=== PATIENT | female | born 1960 | race Hispanic/Latino ===

== ENCOUNTER 2020-12-28 19:01 | Inpatient (IN) | payer OTHER ==
[2020-12-28 19:55] LABS: Absolute Lymphocytes (CBC) 1.3 K/uL (0.7-4.9); Basophils % 0.7 % (0-1.3); Hematocrit 35.7 % (36.0-45.0); Lymphocytes % 17.4 % (15.3-44.8); MPV 7.4 fL (7.6-11.3); RBC Red Blood Cell Count 4.24 M/uL (3.86-4.86)
[2020-12-28 19:56] LABS: Protime INR 1.1
[2020-12-28] MEDS ORDERED: NA CHLORIDE 0.9% 1,000 ML ONE (20:09)
[2020-12-28 20:46] LABS: ALT/SGPT 70 U/L (12-78); AST/SGOT 64 U/L (15-37); Albumin 2.5 g/dL (3.4-5.0); Alkaline Phosphatase 134 U/L (45-117); BUN Blood Urea Nitrogen 30 mg/dL (7-18); Bicarbonate 24 mmol/L (21-32); Bilirubin Direct 0.1 mg/dL (0-0.2); Bilirubin Total 0.3 mg/dL (0.2-1.0); Glucose Level 134 mg/dL (74-106); Magnesium 1.8 mg/dL (1.8-2.4); NT PRO-BNP 57 pg/mL (<125); Potassium 4.1 mmol/L (3.5-5.1); Protein, Total 6.6 g/dL (6.4-8.2); Sodium Level 140 mmol/L (136-145); Troponin (Emerg Dept Use Only) < 0.02 ng/mL (0.0-0.045)
--- NOTE | 2020-12-28 21:15 | RAD REPORT ---
EXAM DESCRIPTION: CT - Chest For Pe Angio - 12/28/2020 9:02 pm CLINICAL HISTORY: Cough;Congestion COMPARISON: No comparisons FINDINGS: Chest Wall: No suspicious thyroid nodules or pathologic lymphadenopathy. Right breast pros thesis. Collapsed left breast prosthesis . Lungs: Moderate airspace disease bilaterally. Pleura: No significant effusions or pneumothorax. Mediastinum/gin: No pathologic lymphadenopathy. Pulmonary arteries/Aorta: No filling defect identified. No aortic aneurysm. Heart: No significant pericardial effusion. Normal heart size. Upper abdomen: No acute abnormality. Cholecystectomy. Bones: No acute abnormality. All CT scans are performed using dose optimization technique as appropriate and may include automated exposure control or mA/KV adjustment according to patient size. IMPRESSION: Negative for pulmonary embolism. Moderate bilateral airspace disease concerning for mult ifocal pneumonia, including Covid-19.
--- NOTE | 2020-12-28 22:03 | EDPHYS ---
Physician Documentation [facility] Name: Jesi Valencia Age: 60 yrs Sex: Female : 1960 Arrival Date: 12/28/2020 Time: 19:03 Bed 8 Private MD: NIKO Physician Stephen Capps HPI: 12/28 21:54 This 60 yrs old Female presents to ER via Ambulatory with complaints of Lung hermilo Problem- spots. 21:54 The patient has shortness of breath at rest, with light activity. Onset: The hermilo symptoms/episode began/occurred 1 week(s) ago. Duration: The symptoms are continuous, and are steadily getting worse, 10 DAYS. The patient's shortness of breath has no apparent modifying factors. The patient or guardian reports cough, described as mild, described as moderate, difficulty breathing, flu symptoms, arthralgias, low-grade fever, myalgias. Modifying factors: The symptoms are alleviated by remaining still, the symptoms are aggravated by activity, lying flat. Associated signs and symptoms: Pertinent positives: non-productive cough, fever. Severity of symptoms: At their worst the symptoms were moderate in the emergency department the symptoms are unchanged. Associated signs and symptoms: Pertinent positives: chest pain, fever, rhinorrhea, sore throat. - Immunization history:: Adult Immunizations up to date, Client reports receiving the 2nd dose of the Covid vaccine. - Social history:: Smoking status: Patient denies any tobacco usage or history of. - Family history:: not pertinent. ROS: 21:54 Constitutional: Negative for fever, chills, and weight loss, Eyes: Negative for injury, hermilo pain, redness, and discharge, ENT: Negative for injury, pain, and discharge, Neck: Negative for injury, pain, and swelling, Cardiovascular: Negative for chest pain, palpitations, and edema, Abdomen/GI: Negative for abdominal pain, nausea, vomiting, diarrhea, and constipation, Back: Negative for injury and pain, : Negative for injury, bleeding, discharge, and swelling, MS/Extremity: Negative for injury and deformity, Skin: Negative for injury, rash, and discoloration, Neuro: Negative for headache, weakness, numbness, tingling, and seizure, Psych: Negative for depression, anxiety, suicide ideation, homicidal ideation, and hallucinations, Allergy/Immunology: Negative for hives, rash, and allergies, Endocrine: Negative for neck swelling, polydipsia, polyuria, polyphagia, and marked weight changes, Hematologic/Lymphatic: Negative for swollen nodes, abnormal bleeding, and unusual bruising. 21:54 Respiratory: Positive for cough, shortness of breath, at rest. Exam: 21:54 Constitutional: This is a well developed, well nourished patient who is awake, alert, hermilo and in no acute distress. Head/Face: Normocephalic, atraumatic. Eyes: Pupils equal round and reactive to light, extra-ocular motions intact. Lids and lashes normal. Conjunctiva and sclera are non-icteric and not injected. Cornea within normal limits. Periorbital areas with no swelling, redness, or edema. ENT: Nares patent. No nasal discharge, no septal abnormalities noted. Tympanic membranes are normal and external auditory canals are clear. Oropharynx with no redness, swelling, or masses, exudates, or evidence of obstruction, uvula midline. Mucous membranes moist. Neck: Trachea midline, no thyromegaly or masses palpated, and no cervical lymphadenopathy. Supple, full range of motion without nuchal rigidity, or vertebral point tenderness. No Meningismus. Chest/axilla: Normal chest wall appearance and motion. Nontender with no deformity. No lesions are appreciated. Cardiovascular: Regular rate and rhythm with a normal S1 and S2. No gallops, murmurs, or rubs. Normal PMI, no JVD. No pulse deficits. Abdomen/GI: Soft, non-tender, with normal bowel sounds. No distension or tympany. No guarding or rebound. No evidence of tenderness throughout. Back: No spinal tenderness. No costovertebral tenderness. Full range of motion. Female : Normal external genitalia. Skin: Warm, dry with normal turgor. Normal color with no rashes, no lesions, and no evidence of cellulitis. MS/ Extremity: Pulses equal, no cyanosis. Neurovascular intact. Full, normal range of motion. Neuro: Awake and alert, GCS 15, oriented to person, place, time, and situation. Cranial nerves II-XII grossly intact. Motor strength 5/5 in all extremities. Sensory grossly intact. Cerebellar exam normal. Normal gait. Psych: Awake, alert, with orientation to person, place and time. Behavior, mood, and affect are within normal limits. 21:54 Respiratory: the patient does not display signs of respiratory distress, Respirations: no acute changes, is not noted, labored breathing, is not present, Breath sounds: decreased breath sounds, that are moderate, rhonchi, that are mild. 21:54 Respiratory: Respiratory rate: 81 22:03 ECG was reviewed by the Attending Physician. hermilo Vital Signs: 19:16 BP 124 / 73; Pulse 106; Resp 20; Temp 99.0; Pulse Ox 92% on R/A; Weight 102.51 kg; df1 Height 5 ft. 1 in. (154.94 cm); 19:19 BP 124 / 73; Pulse 106; Resp 20; Temp 99.0; Pulse Ox 92% on R/A; df1 21:40 BP 113 / 57; Pulse 81; Resp 18 S; Pulse Ox 99% on R/A; ch4 19:16 Body Mass Index 42.70 (102.51 kg, 154.94 cm) df1 [place] Coma Score: 19:47 Eye Response: spontaneous(4). Verbal Response: oriented(5). Motor Response: obeys ch4 commands(6). Total: 15. MDM: 19:29 Patient medically screened. hermilo 21:58 Differential diagnosis: asthma, Bronchitis CHF exacerbation, Chronic Obstructive hermilo Pulmonary Disease bronchitis, flu, URI, pneumonia, pulmonary edema, Pulmonary Embolism reactive airway disease, Sepsis. Antibiotic administration: Rocephin and Zithromax given. The patient's Wells Deep Vein Thrombosis Score was calculated as follows: Total Score: 0-2 Pts- Low Risk. The patient's pulmonary embolism risk score was calculated as follows: Total Score: 0-2 points. This patient was found to be at low risk for a pulmonary embolism by using the Well's assessment criteria. Immunization status: Influenza vaccine: Data reviewed: vital signs, nurses notes, lab test result(s), EKG, radiologic studies, CT scan, plain films. Data interpreted: shelter monitor: rate is 81 beats/min, rhythm is regular, Pulse oximetry: on room air is 92 %. Test interpretation: by ED physician or midlevel provider: ECG, plain radiologic studies. Counseling: I had a detailed discussion with the patient and/or guardian regarding: the historical points, exam findings, and any diagnostic results supporting the discharge/admit diagnosis, lab results, radiology results, the need for further work-up and treatment in the hospital. 12/28 19:28 Order name: Basic Metabolic Panel; Complete Time: 21:36 [facility] 12/28 19:28 Order name: CBC with Diff; Complete Time: 21:36 [facility] 12/28 19:28 Order name: LFT's; Complete Time: 21:36 [facility] 12/28 19:28 Order name: Magnesium; Complete Time: 21:36 [facility] 12/28 19:28 Order name: NT PRO-BNP; Complete Time: 21:36 [facility] 12/28 19:28 Order name: PT-INR; Complete Time: 21:36 [facility] 12/28 19:28 Order name: Troponin (emerg Dept Use Only); Complete Time: 21:36 [facility] 12/28 19:28 Order name: Blood Culture Adult (2) [facility] 12/28 21:38 Order name: COVID-19 : Document "Date of Symptom Onset" if Symptomatic. [facility] 12/28 22:00 Order name: CRP [facility] 12/28 22:00 Order name: Ferritin [facility] 12/29 00:11 Order name: SARS-COV-2 RT PCR [facility] 12/28 19:28 Order name: EKG; Complete Time: 19:29 [facility] 12/28 19:28 Order name: Cardiac monitoring; Complete Time: 19:38 [facility] 12/28 19:28 Order name: EKG - Nurse/Tech; Complete Time: 19:38 [facility] 12/28 19:28 Order name: IV Saline Lock; Complete Time: 19:38 [facility] 12/28 19:28 Order name: Labs collected and sent; Complete Time: 19:38 [facility] 12/28 19:28 Order name: O2 Per Protocol; Complete Time: 19:38 [facility] 12/28 19:28 Order name: CT Chest For PE Angio; Complete Time: 21:36 [facility] 12/28 23:17 Order name: CONS Physician Consult; Complete Time: 00:18 [facility] 12/28 19:28 Order name: O2 Sat Monitoring; Complete Time: 19:38 [facility] EC:03 Rate is 96 beats/min. Rhythm is regular. QRS [place] is Normal. [place] interval is normal. QRS hermilo interval is normal. QT interval is normal. No Q waves. T waves are Normal. No ST changes noted. Clinical impression: NSR w/ Non-specific ST/T Changes and No evidence of ischemia. Interpreted by me. Reviewed by me. Administered Medications: 19:47 Drug: NS 0.9% 1000 ml Route: IV; Rate: 125 ml/hr; Site: right antecubital; ch4 21:58 Drug: SOLU-Medrol (methylPrednisoLONE) 125 mg Route: IVP; Site: right antecubital; ea 21:58 Drug: predniSONE 40 mg Route: PO; ea 21:58 Drug: Rocephin (cefTRIAXone) 1 grams Route: IV; Rate: per protocol; Site: right ea antecubital; 21:58 Drug: Zithromax (azithromycin) 500 mg Route: PO; ea 21:58 Drug: Pepcid (famotidine) 40 mg Route: PO; ea 12/29 00:18 Drug: Singulair 10 mg Route: PO; ch4 00:18 Drug: Aspirin Chewable Tablet 324 mg Route: PO; ch4 Disposition Summary: 12/28/20 22:02 Hospitalization Ordered Hospitalization Status: Observation hermilo Provider: Ewa Hare cha Location: Telemetry/MedSurg (observation) hermilo Condition: Fair hermilo Problem: new hermilo Symptoms: have improved hermilo Bed/Room Type: Standard hermilo Room Assignment: 228(12/29/20 01:08) tl1 Diagnosis - Hypoxemia hermilo - Other viral pneumonia - BILATERAL hermilo - Chest pain on breathing hermilo Forms: - Medication Reconciliation Form hermilo - SBAR form hermilo Signatures: Dispatcher [employer] EDStephen Carolina MD MD cha Lasagna, Tonya RN RN tl1 Abigail Barker RN RN ea Herman, Christina RN Justina Bearden df1 Corrections: (The following items were deleted from the chart) 12/28 20:15 19:29 Chest Single View+RAD.RAD.BRZ ordered. EDMS EDMS 23:02 21:38 CORONAVIRUS ordered. EDMS EDMS 12/29 01:08 12/28 22:02 hermilo tl1
--- NOTE | 2020-12-28 22:03 | ER ---
Nurse's Notes [facility] Name: Jesi Valencia Age: 60 yrs Sex: Female : 1960 Arrival Date: 12/28/2020 Time: 19:03 Bed 8 Private MD: Diagnosis: Hypoxemia;Other viral pneumonia-BILATERAL;Chest pain on breathing Presentation: 12/28 19:16 Chief complaint: Patient states: SOB x 1 week. Seen at PCP today tested neg for flu and df1 covid. Xray at PCP today showed "spots on lungs" Referred to ER. Coronavirus screen: Client denies travel out of the [place] in the last 14 days. Client presents with at least one sign or symptom that may indicate coronavirus-19. Standard/surgical mask placed on the client. Ebola Screen: Patient denies travel to an Ebola-affected area in the 21 days before illness onset. No symptoms or risks identified at this time. 19:16 Method Of Arrival: Ambulatory df1 - Immunization history:: Adult Immunizations up to date, Client reports receiving the 2nd dose of the Covid vaccine. - Social history:: Smoking status: Patient denies any tobacco usage or history of. - Family history:: not pertinent. Screenin:47 Abuse screen: Denies threats or abuse. Nutritional screening: No deficits noted. ch4 Tuberculosis screening: No symptoms or risk factors identified. Fall Risk None identified. Assessment: 19:47 General: Appears in no apparent distress. comfortable, Behavior is calm, cooperative. ch4 Pain: Complains of pain in chest. Neuro: No deficits noted. Cardiovascular: No deficits noted. Respiratory: Reports shortness of breath at rest Airway is patent Breath sounds are clear bilaterally. Breath sounds are diminished in left posterior lower lobe and right posterior lower lobe. GI: No deficits noted. : No deficits noted. Derm: No deficits noted. Musculoskeletal: No deficits noted. 21:26 Reassessment: Patient and/or family updated on plan of care and expected duration. Pain ea level reassessed. Patient is alert, oriented x 3, equal unlabored respirations, skin warm/dry/pink. Vital Signs: 19:16 BP 124 / 73; Pulse 106; Resp 20; Temp 99.0; Pulse Ox 92% on R/A; Weight 102.51 kg; df1 Height 5 ft. 1 in. (154.94 cm); 19:19 BP 124 / 73; Pulse 106; Resp 20; Temp 99.0; Pulse Ox 92% on R/A; df1 21:40 BP 113 / 57; Pulse 81; Resp 18 S; Pulse Ox 99% on R/A; ch4 19:16 Body Mass Index 42.70 (102.51 kg, 154.94 cm) df1 Vitals: 19:47 Cardiac Rhythm Assessment Regular. ch4 Mita Coma Score: 19:47 Eye Response: spontaneous(4). Verbal Response: oriented(5). Motor Response: obeys ch4 commands(6). Total: 15. ED Course: 19:03 Patient arrived in ED. as 19:29 Stephen Capps MD is Attending Physician. [facility] 19:37 Maya Araujo, RAMONE is Primary Nurse. ch4 19:47 Patient has correct armband on for positive identification. Bed in low position. Call ch4 light in reach. Side rails up X 1. 19:47 Inserted saline lock: 20 gauge in right antecubital area, using aseptic technique. ch4 19:47 Oxygen administration via nasal cannula \\T\\ 2L/min. ch4 21:02 CT Chest For PE Angio In Process Unspecified. EDMS 22:00 Ewa Hare MD is Hospitalizing Provider. hermilo Administered Medications: 19:47 Drug: NS 0.9% 1000 ml Route: IV; Rate: 125 ml/hr; Site: right antecubital; ch4 21:58 Drug: SOLU-Medrol (methylPrednisoLONE) 125 mg Route: IVP; Site: right antecubital; ea 21:58 Drug: predniSONE 40 mg Route: PO; ea 21:58 Drug: Rocephin (cefTRIAXone) 1 grams Route: IV; Rate: per protocol; Site: right ea antecubital; 21:58 Drug: Zithromax (azithromycin) 500 mg Route: PO; ea 21:58 Drug: Pepcid (famotidine) 40 mg Route: PO; ea 12/29 00:18 Drug: Singulair 10 mg Route: PO; ch4 00:18 Drug: Aspirin Chewable Tablet 324 mg Route: PO; ch4 Outcome: 12/28 22:02 Decision to Hospitalize by Provider. [facility] 12/29 01:34 Patient left the ED. ea Signatures: Dispatcher [employer] EDNE Jefry, StephenMD MD hermilo wahl Amelia as Antunez, Elena, RN RN Maya Hogan RN RN ch4 Furlich, Dawn df1
[2020-12-28] MEDS ORDERED: METHYLPREDNISOLONE 125 MG INJ ONE (22:15)
[2020-12-28] MEDS ORDERED: FAMOTIDINE 20 MG TAB ONE (22:16)
[2020-12-28] MEDS ORDERED: CEFTRIAXONE/SWI 1gm 1 GM/10 ML SYR ONE (22:16)
[2020-12-28] MEDS ORDERED: AZITHROMYCIN 250 MG TAB ONE (22:16)
[2020-12-28] MEDS ORDERED: predniSONE 20 MG TAB ONE (22:16)
[2020-12-28] MEDS ORDERED: ASPIRIN 81 MG CHEWABLE TABLET ONE (22:34)
--- NOTE | 2020-12-28 23:27 | P.HP ---
Certification for Inpatient Patient admitted to: Observation With expected LOS: <2 Midnights Patient will require the following post-hospital care: None Practitioner: I am a practitioner with admitting privileges, knowledge of patient current condition, hospital course, and medical plan of care. Services: Services provided to patient in accordance with Admission requirements found in Title 42 Section 412.3 of the Code of Federal Regulations <Feng Grey Gera - Last Filed: 12/28/20 23:21> Patient History Date of Service: 12/28/20 Primary Care Provider: Reason for admission: covid pneumonia History of Present Illness: Ms. Valencia is a 60 yo F with HTN who presents with fever and SOB beginning l ast Saturday. She also reports malaise, headaches, HECTOR and diarrhea. Denies coughing and wheezing. Today she arrived with RA saturations of 92%, and has been as low as 88%. Stable on 2L NC. Received both doses of the Moderna vaccine. CT Chest shows moderate covid pneumonia, no pulmonary embolism. - Past Medical/Surgical History -: HTN -: arthritis -: depression anxiety -: scoliosis -: 2 knee replacements -: venu - Family History Family History: Reviewed- Non-Contributory - Social History Smoking Status: Never smoker Alcohol use: No CD- Drugs: No Caffeine use: Yes Place of Residence: Home <Feng Grey - Last Filed: 12/28/20 23:21> Date of Service: 12/30/20 <Ewa Hare - Last Filed: 12/30/20 23:51> Allergies Penicillins Allergy (Verified 12/28/20 23:54) Itching/Hives/Rash Home Medications: Esomeprazole Mag Trihydrate [Nexium] 40 mg PO DAILY 12/29/20 Gabapentin 600 mg PO TID 12/29/20 Leflunomide 20 mg PO DAILY 12/29/20 Sertraline [Zoloft*] 1.5 tab PO DAILY 12/29/20 Tramadol HCl [Ultram] 50 mg PO TID PRN 12/29/20 lisinopriL [Lisinopril] 20 mg PO DAILY 12/29/20 Albuterol Sulfate [Albuterol Sulfate 0.083% Neb Soln] 2.5 mg NEB Q6HP PRN #60 amp 12/30/20 Benzonatate [Tessalon Perle*] 100 mg PO TID PRN #30 cap 12/30/20 Ipratropium Neb [Atrovent*] 0.5 mg NEB Q6HP PRN #60 amp 12/30/20 Levofloxacin [Levaquin] 500 mg PO DAILY #7 tablet 12/30/20 Nebulizer Accessories [Aeroneb Go] 1 each MC DAILY #1 each 12/30/20 Nebulizer [Aeroneb Go Nebulizer] 1 each MC DAILY #1 each 12/30/20 predniSONE [Deltasone] 20 mg PO BID #11 tab 12/30/20 Review of Systems 10-point ROS is otherwise unremarkable General: Fever, Chills, Sweats, Weakness, Malaise Respiratory: Shortness of Breath, SOB with Excertion Gastrointestinal: Diarrhea <Feng Grey - Last Filed: 12/28/20 23:21> Physical Examination - Physical Exam General: Alert, In no apparent distress HEENT: Atraumatic, PERRLA, Mucous membr. moist/pink, EOMI, Sclerae nonicteric Neck: Supple, 2+ carotid pulse no bruit, No LAD, Without JVD or thyroid abnormality Respiratory: Normal air movement, Expiratory wheezes, Rhonchi/gurgles Cardiovascular: Regular rate/rhythm, Normal S1 S2 Gastrointestinal: Normal bowel sounds, No tenderness Musculoskeletal: No tenderness Integumentary: No rashes Neurological: Normal gait, Normal speech, Normal strength at 5/5 x4 extr, Normal tone, Normal affect Lymphatics: No axilla or inguinal lymphadenopathy - Studies Laboratory Data (last 24 hrs) 12/28/20 19:42: PT 12.7 H, INR 1.10 12/28/20 19:42: WBC 7.70, Hgb 11.4 L, Hct 35.7 L, Plt Count 344 12/28/20 19:42: Sodium 140, Potassium 4.1, BUN 30 H, Creatinine 1.06, Glucose 134 H, Magnesium 1.8, Total Bilirubin 0.3, AST 64 H, ALT 70, Alkaline Phosphatase 134 H <Feng Grey - Last Filed: 12/28/20 23:21> Assessment and Plan - Problems (Diagnosis) (1) HTN (hypertension) Current Visit: Yes Status: Chronic Qualifiers: Hypertension type: primary hypertension Qualified Code(s): I10 - Essential (primary) hypertension (2) Pneumonia due to COVID-19 virus Current Visit: Yes Status: Acute - Plan pulm consulted, RT consulted room air sats daily, sats for home O2 continue IV steroids, covid supplements, and ivermectin continue xarelto daily reconcile and continue home medications Discharge Plan: Home Plan to discharge in: 24 Hours - Advance Directives Does patient have a Living Will: No Does patient have a Durable POA for Healthcare: No - Code Status/Comfort Care Code Status Assessed: Yes (full code ) Critical Care: No Time Spent Managing Pts Care (In Minutes): 70 <Feng Grey - Last Filed: 12/28/20 23:21> - Problems (Diagnosis) (1) Bacterial pneumonia Current Visit: Yes Status: Acute (2) HTN (hypertension) Current Visit: Yes Status: Chronic Qualifiers: Hypertension type: primary hypertension Qualified Code(s): I10 - Essential (primary) hypertension (3) History of depression Current Visit: Yes Status: Acute (4) History of osteoarthritis Current Visit: Yes Status: Acute <Ewa Hare - Last Filed: 12/30/20 23:51> Date of Service: 12/28/20 Subjective Agree with plan of care as mentioned above Review of Systems 10-point ROS is otherwise unremarkable Physical Examination - Vital Signs Reviewed - Physical Exam General: Alert, In no apparent distress, Oriented x3 Respiratory: Diminished, Expiratory wheezes Cardiovascular: Regular rate/rhythm, Normal S1 S2, No murmurs Gastrointestinal: Normal bowel sounds, Soft and benign, Non-distended, No tenderness Musculoskeletal: No clubbing, No swelling, No tenderness Neurological: Sensation intact, Cranial nerves 3-12 intact Assessment & Plan - Problems (Diagnosis) (1) Bacterial pneumonia Current Visit: Yes Status: Acute (2) HTN (hypertension) Current Visit: Yes Status: Chronic Qualifiers: Hypertension type: primary hypertension Qualified Code(s): I10 - Essential (primary) hypertension (3) History of depression Current Visit: Yes Status: Acute (4) History of osteoarthritis Current Visit: Yes Status: Acute - Plan 1. Continue with IV antibiotics 2. Awaiting culture results 3. Will probably repeat chest x-ray 4. Continue with nebulizer treatments as needed 5. Appreciate pulmonary consultation 6. Out of bed and ambulate 7. O2 per protocol 8. Hep-Lock IV 9. Continue monitoring labs 10. GI and DVT prophylaxis <Ewa Hare - Last Filed: 12/30/20 23:51>
[2020-12-28] MEDS ORDERED: IVERMECTIN 3 MG TABLET PO SCH (23:49)
[2020-12-28] MEDS ORDERED: ONDANSETRON 4 MG/2 ML VIAL IV PRN (23:49)
[2020-12-28] MEDS ORDERED: MELATONIN 5 MG TABLET PO PRN (23:49)
[2020-12-28] MEDS ORDERED: MORPHINE 2 MG/ML SYR IV PRN (23:49)
[2020-12-29] MEDS ORDERED: MONTELUKAST 10 MG TAB ONE (00:37)
[2020-12-29 01:02] LABS: Ferritin 149.9 ng/mL (8-388)
[2020-12-29] MEDS ORDERED: ALBUTEROL 2.5 MG/3 ML NEB SOL NEB PRN (01:37)
[2020-12-29 01:53] VITALS: BMI 42.7
[2020-12-29] MEDS: NA CHLORIDE 0.9% 1,000 ML IV SCH ×3 (02:03→21:05)
[2020-12-29 05:16] LABS: Absolute Lymphocytes (CBC) 0.6 K/uL (0.7-4.9); Basophils % 0.5 % (0-1.3); Hematocrit 33.6 % (36.0-45.0); Lymphocytes % 14.8 % (15.3-44.8); MPV 7.5 fL (7.6-11.3); RBC Red Blood Cell Count 4.01 M/uL (3.86-4.86)
[2020-12-29 05:29] LABS: Albumin 2.3 g/dL (3.4-5.0); Bilirubin Total 0.2 mg/dL (0.2-1.0); Magnesium 2.1 mg/dL (1.8-2.4); Phosphorus 2.4 mg/dL (2.5-4.9); Potassium 4.1 mmol/L (3.5-5.1); Protein, Total 6.4 g/dL (6.4-8.2)
[2020-12-29] MEDS: INSULIN -REGULAR HUMAN 50 UNIT/0.5 ML ML SQ SCH ×4 (07:30→20:20)
[2020-12-29] MEDS: ENOXAPARIN 40 MG/0.4 ML SQ SCH (08:24)
[2020-12-29] MEDS ORDERED: METHYLPREDNISOLONE 125 MG INJ IV SCH (09:00)
[2020-12-29] MEDS ORDERED: THIAMINE HCL 100 MG TABLET PO SCH (09:00)
[2020-12-29] MEDS ORDERED: VITAMIN D 1000 UNIT TAB PO SCH (09:00)
[2020-12-29] MEDS ORDERED: ZINC SULFATE 220 MG CAP PO SCH (09:00)
[2020-12-29] MEDS ORDERED: ASCORBIC ACID 500 MG TABLET PO SCH (09:00)
[2020-12-29] MEDS ORDERED: ASPIRIN EC 81 MG TAB PO SCH (09:00)
[2020-12-29] MEDS: TRAMADOL HCL 50 MG TAB PO PRN ×2 (14:38→19:38)
[2020-12-29] MEDS: AZITHROMYCIN IV 250 MG in NA CHLORIDE 0.9% 250 ML IVPB SCH (14:56)
[2020-12-29] MEDS: BENZONATATE 100 MG CAP PO PRN ×2 (14:57→19:38)
[2020-12-29] MEDS: ACETAMINOPHEN 500 MG TAB PO PRN (16:05)
[2020-12-29] MEDS: CEFTRIAXONE/SWI 1gm 1 GM/10 ML SYR IV SCH (16:06)
[2020-12-29] MEDS: METHYLPREDNISOLONE 40 MG INJ IV SCH (16:06)
[2020-12-29] MEDS ORDERED: RIVAROXABAN 10 MG TABLET PO SCH (17:00)
[2020-12-29] MEDS ORDERED: HOME MED 1 EA UNK (Esomeprazole Mag Trihydrate [Nexium] 40 MG Capsule.Dr) PO SCH (20:54)
[2020-12-29] MEDS ORDERED: CEFTRIAXONE 1 GM/NS 50 ML 1 GM/50 ML BAG IV SCH (21:00)
[2020-12-29] MEDS ORDERED: HOME MED 1 EA UNK (Gabapentin [Gabapentin] 600 MG Tablet) PO SCH (21:00)
[2020-12-29] MEDS: GABAPENTIN 300 MG CAP PO SCH (22:01)
[2020-12-29] MEDS: SERTRALINE HCL 50 MG TAB PO SCH (22:02)
[2020-12-29] MEDS: lisinopriL 20 MG TAB PO SCH (22:02)
[2020-12-30] MEDS: METHYLPREDNISOLONE 40 MG INJ IV SCH ×3 (00:42→16:10)
[2020-12-30] MEDS: PANTOPRAZOLE 40MG TABLET PO SCH (05:30)
[2020-12-30] MEDS: CEFTRIAXONE/SWI 1gm 1 GM/10 ML SYR IV SCH (05:30)
[2020-12-30] MEDS: NA CHLORIDE 0.9% 1,000 ML IV SCH ×2 (05:32→18:40)
[2020-12-30] MEDS: INSULIN -REGULAR HUMAN 50 UNIT/0.5 ML ML SQ SCH ×4 (07:30→21:00)
[2020-12-30] MEDS: ACETAMINOPHEN 500 MG TAB PO PRN ×2 (07:54→18:44)
[2020-12-30] MEDS: ENOXAPARIN 40 MG/0.4 ML SQ SCH (07:55)
[2020-12-30] MEDS: lisinopriL 20 MG TAB PO SCH (07:56)
[2020-12-30] MEDS: GABAPENTIN 300 MG CAP PO SCH ×3 (07:56→19:27)
[2020-12-30] MEDS: SERTRALINE HCL 50 MG TAB PO SCH (07:57)
[2020-12-30] MEDS: AZITHROMYCIN IV 250 MG in NA CHLORIDE 0.9% 250 ML IVPB SCH (09:06)
[2020-12-30 14:26] LABS: Absolute Lymphocytes (CBC) 0.8 K/uL (0.7-4.9); Lymphocytes % 8.8 % (15.3-44.8); MPV 7.3 fL (7.6-11.3); RBC Red Blood Cell Count 4.33 M/uL (3.86-4.86)
[2020-12-30 14:36] LABS: Albumin 2.5 g/dL (3.4-5.0); Bilirubin Total 0.3 mg/dL (0.2-1.0); Protein, Total 6.5 g/dL (6.4-8.2)
[2020-12-30] MEDS: CEFTRIAXONE 1 GM/NS 50 ML 1 GM/50 ML BAG IV SCH (16:08)
--- NOTE | 2020-12-30 16:39 | RAD REPORT ---
EXAM DESCRIPTION: RAD - Chest Single View - 12/30/2020 4:22 pm CLINICAL HISTORY: pneumonia COMPARISON: Chest Pa And Lat (2 Views) dated 12/28/2020; Chest Pa And Lat (2 Views) dated 12/24/2016; Chest For Pe Angio dated 12/28/2020 FINDINGS: Lines: None. Lungs: Moderate patchy bilateral airspace disease which is worsened since 12/28/2020 . Pleural: No significant pleural effusions or pneumothorax. Cardiac: The heart size is within normal limits. Bones: No acute fractures. Other: IMPRESSION: Decreased lung volumes with apparent worsening bilateral airspace disease concerning for Covid-19 pneumonia.
[2020-12-30 16:50] LABS: Blood Morphology Comment NOT SEEN (NOT SEEN); Platelet Estimate INCR; White Blood Cell Scan OK (OK)
--- NOTE | 2020-12-30 23:34 | P.PN ---
Subjective Date of Service: 12/29/20 Patient respiratory status is improving. She states she is feeling better and she is wanting to try to go home in the morning. She still was hypoxic and requiring oxygen. Will try to continue to wean her off. Anticipate discharge over the next 48 hr. Review of Systems 10-point ROS is otherwise unremarkable Physical Examination - Vital Signs Temperature: 97.3 F Blood Pressure: 122/64 Pulse: 70 Respirations: 18 Pulse Ox (%): 96 - Physical Exam General: Alert, In no apparent distress, Oriented x3 Respiratory: Diminished, Expiratory wheezes Cardiovascular: Regular rate/rhythm, Normal S1 S2, No murmurs Gastrointestinal: Normal bowel sounds, Soft and benign, Non-distended, No tenderness Musculoskeletal: No clubbing, No swelling, No tenderness Integumentary: No rashes Neurological: Sensation intact, Cranial nerves 3-12 intact Lymphatics: No axilla or inguinal lymphadenopathy - Studies Medications List Reviewed: Yes Assessment & Plan - Problems (Diagnosis) (1) Bacterial pneumonia Current Visit: Yes Status: Acute (2) HTN (hypertension) Current Visit: Yes Status: Chronic Qualifiers: Hypertension type: primary hypertension Qualified Code(s): I10 - Essential (primary) hypertension (3) History of depression Current Visit: Yes Status: Acute (4) History of osteoarthritis Current Visit: Yes Status: Acute - Plan 1. Continue with IV antibiotics 2. Awaiting sputum and blood culture 3. Repeat chest x-ray 4. Continue with nebulizer treatments as needed 5. Appreciate pulmonary consultation 6. Out of bed and ambulate 7. O2 per protocol 8. Continue with gentle hydration 9. Continue monitoring labs 10. GI and DVT prophylaxis Discharge Plan: Home Plan to discharge in: Greater than 2 days - Advance Directives Does patient have a Living Will: No Does patient have a Durable POA for Healthcare: No - Code Status/Comfort Care Code Status Assessed: Yes Code Status: Full Code Critical Care: No Time Spent Managing PTS Care (In Minutes): 35
--- NOTE | 2020-12-30 23:54 | P.PN ---
Date of Service: 12/30/20 Subjective Plan was to possibly discharge however chest x-ray shows some worsening. Patient remains hypoxic on ambulation. Arranging for home oxygen. Continue with antibiotics. Continue with steroids. Check labs in a.m.. Review of Systems 10-point ROS is otherwise unremarkable Physical Examination - Vital Signs Reviewed - Physical Exam General: Alert, In no apparent distress, Oriented x3 Respiratory: Clear bilaterally Cardiovascular: Regular rate/rhythm, Normal S1 S2, No murmurs Gastrointestinal: Normal bowel sounds, Soft and benign, Non-distended, No tenderness Musculoskeletal: No clubbing, No swelling, No tenderness Neurological: Sensation intact, Cranial nerves 3-12 intact Assessment & Plan - Problems (Diagnosis) (1) Bacterial pneumonia Current Visit: Yes Status: Acute (2) HTN (hypertension) Current Visit: Yes Status: Chronic Qualifiers: Hypertension type: primary hypertension Qualified Code(s): I10 - Essential (primary) hypertension (3) History of depression Current Visit: Yes Status: Acute (4) History of osteoarthritis Current Visit: Yes Status: Acute - Plan Continue with plan of care as mentioned below: 1. Continue with IV antibiotics 2. Awaiting culture results 3. Will go ahead and repeat chest x-ray in the morning 4. Continue with nebulizer treatments as needed 5. Outpatient pulmonary follow 6. Out of bed and ambulate 7. O2 per protocol 8. Continue with gentle hydration 9. Continue monitoring labs 10. GI and DVT prophylaxis
[2020-12-31] MEDS: METHYLPREDNISOLONE 40 MG INJ IV SCH ×3 (01:00→16:09)
[2020-12-31] MEDS: CEFTRIAXONE 1 GM/NS 50 ML 1 GM/50 ML BAG IV SCH ×2 (05:00→16:09)
[2020-12-31] MEDS: PANTOPRAZOLE 40MG TABLET PO SCH (05:26)
[2020-12-31] MEDS: ACETAMINOPHEN 500 MG TAB PO PRN (05:35)
[2020-12-31] MEDS ORDERED: NA CHLORIDE 0.9% 100 ML ONE (05:47)
[2020-12-31] MEDS ORDERED: CEFTRIAXONE 1000 MG/VIAL ONE (05:47)
[2020-12-31] MEDS ORDERED: FUROSEMIDE 20 MG/ 2ML VIAL IV ONE (06:00)
[2020-12-31 06:27] LABS: Absolute Lymphocytes (CBC) 0.9 K/uL (0.7-4.9); Basophils % 0.1 % (0-1.3); Lymphocytes % 10.1 % (15.3-44.8); MPV 7.4 fL (7.6-11.3); RBC Red Blood Cell Count 4.27 M/uL (3.86-4.86)
[2020-12-31 06:36] LABS: Albumin 2.4 g/dL (3.4-5.0); Bilirubin Total 0.4 mg/dL (0.2-1.0); Magnesium 2.1 mg/dL (1.8-2.4); Potassium 3.6 mmol/L (3.5-5.1); Protein, Total 6.5 g/dL (6.4-8.2)
[2020-12-31] MEDS: INSULIN -REGULAR HUMAN 50 UNIT/0.5 ML ML SQ SCH ×3 (07:30→16:23)
[2020-12-31] MEDS: GABAPENTIN 300 MG CAP PO SCH ×2 (07:31→13:44)
[2020-12-31] MEDS: SERTRALINE HCL 50 MG TAB PO SCH (07:32)
[2020-12-31] MEDS: ENOXAPARIN 40 MG/0.4 ML SQ SCH (07:35)
[2020-12-31] MEDS ORDERED: POTASSIUM CL SA 10 MEQ TAB PO ONE (09:00)
[2020-12-31] MEDS ORDERED: lisinopriL 10 MG TAB PO SCH (09:00)
[2020-12-31] MEDS: AZITHROMYCIN IV 250 MG in NA CHLORIDE 0.9% 250 ML IVPB SCH (09:37)
--- NOTE | 2020-12-31 10:03 | RAD REPORT ---
EXAM DESCRIPTION: RAD - Chest Single View - 12/31/2020 7:03 am CLINICAL HISTORY: pneumonia Chest pain. COMPARISON: Chest Single View dated 12/30/2020; Chest Pa And Lat (2 Views) dated 12/28/2020; Chest Pa And Lat (2 Views) dated 12/24/2016 FINDINGS: Portable technique limits examination quality. Moderate bilateral interstitial lung opacities are present filling slightly progressive since yesterd ay's study. This likely represents underlying viral infection or pneumonia. The heart is upper limit normal in size. No displaced fractures. IMPRESSION: Mild worsening in lung aeration is seen since yesterday's study.
[2020-12-31 17:19] VITALS: O2SAT 95
[2020-12-31 17:27] VITALS: BP 145/71; TEMP 97.6
--- NOTE | 2020-12-31 17:51 | P.DS ---
Admission Date: 12/29/20 Discharge Date: 12/31/20 Primary Care Provider: Disposition: ROUTINE DISCHARGE Discharge Condition: GOOD Reason for Admission: covid pneumonia Brief History of Present Illness: Patient presented with shortness of breath. was admitted and worked up for covid Hospital Course: Patient is doing well. She has been off oxygen for the past 2 days. The pat ienguyen has no history of copd.. Negative for covid. Will discharge her on low dose steroids and levaquin. Vital Signs/Physical Exam: Temp Pulse Resp BP Pulse Ox 97.6 F 66 18 145/71 H 95 12/31/20 16:00 12/31/20 16:00 12/31/20 16:00 12/31/20 16:00 12/31/20 16:00 General: Alert, In no apparent distress HEENT: Atraumatic, PERRLA, EOMI Neck: Supple, JVD not distended Respiratory: Clear to auscultation bilaterally, Normal air movement Cardiovascular: Regular rate/rhythm, Normal S1 S2 Gastrointestinal: Normal bowel sounds, No tenderness Musculoskeletal: No tenderness Integumentary: No rashes Neurological: Normal speech, Normal tone, Normal affect Lymphatics: No axilla or inguinal lymphadenopathy Laboratory Data at Discharge: WBC 8.50 K/uL (4.3-10.9) 12/31/20 05:59 Hgb 11.4 g/dL (12.0-15.0) L 12/31/20 05:59 Hct 36.0 % (36.0-45.0) 12/31/20 05:59 Plt Count 451 K/uL (152-406) H 12/31/20 05:59 PT 12.7 SECONDS (9.5-12.5) H 12/28/20 19:42 INR 1.10 12/28/20 19:42 Sodium 144 mmol/L (136-145) 12/31/20 05:59 Potassium 3.6 mmol/L (3.5-5.1) 12/31/20 05:59 BUN 21 mg/dL (7-18) H 12/31/20 05:59 Creatinine 0.81 mg/dL (0.55-1.3) 12/31/20 05:59 Glucose 142 mg/dL (74-106) H 12/31/20 05:59 Phosphorus 2.4 mg/dL (2.5-4.9) L 12/29/20 04:29 Magnesium 2.1 mg/dL (1.8-2.4) 12/31/20 05:59 Total Bilirubin 0.4 mg/dL (0.2-1.0) 12/31/20 05:59 AST 24 U/L (15-37) 12/31/20 05:59 ALT 53 U/L (12-78) 12/31/20 05:59 Alkaline Phosphatase 107 U/L (45-117) 12/31/20 05:59 Home Medications: Esomeprazole Mag Trihydrate [Nexium] 40 mg PO DAILY 12/29/20 Gabapentin 600 mg PO TID 12/29/20 Leflunomide 20 mg PO DAILY 12/29/20 Sertraline [Zoloft*] 1.5 tab PO DAILY 12/29/20 Tramadol HCl [Ultram] 50 mg PO TID PRN 12/29/20 lisinopriL [Lisinopril] 20 mg PO DAILY 12/29/20 Albuterol Sulfate [Albuterol Sulfate 0.083% Neb Soln] 2.5 mg NEB Q6HP PRN #60 amp 12/30/20 Benzonatate [Tessalon Perle*] 100 mg PO TID PRN #30 cap 12/30/20 Ipratropium Neb [Atrovent*] 0.5 mg NEB Q6HP PRN #60 amp 12/30/20 Levofloxacin [Levaquin] 500 mg PO DAILY #7 tablet 12/30/20 Nebulizer Accessories [Aeroneb Go] 1 each DAILY #1 each 12/30/20 Nebulizer [Aeroneb Go Nebulizer] 1 each DAILY #1 each 12/30/20 predniSONE [Deltasone] 20 mg PO BID #11 tab 12/30/20 New Medications: Nebulizer Accessories [Aeroneb Go] 1 each DAILY #1 each Nebulizer [Aeroneb Go Nebulizer] 1 each DAILY #1 each Albuterol Sulfate [Albuterol Sulfate 0.083% Neb Soln] 2.5 mg NEB Q6HP PRN #60 amp PRN Reason: Dyspnea Ipratropium Neb [Atrovent*] 0.5 mg NEB Q6HP PRN #60 amp PRN Reason: Dyspnea Levofloxacin [Levaquin] 500 mg PO DAILY #7 tablet predniSONE [Deltasone] 20 mg PO BID #11 tab Benzonatate [Tessalon Perle*] 100 mg PO TID PRN #30 cap PRN Reason: Cough Physician Discharge Instructions: PROBLEM: Pneumonia GOAL: Clear understanding of disease process INSTRUCTIONS: OK TO DC IV AND DC HOME FOLLOW-UP WITH PRIMARY CARE PROVIDER IN 1-2 WEEKS FOLLOW-UP WITH Pulmonary IN 1-2 WEEKS RETURN TO THE ER IF symptoms worsen CALL or TEXT DR. DAO AT [phone] IF ANY QUESTIONS REGARDING HOSPITAL STAY. PLEASE CALL THE FLOOR AT [phone] IF ANY MEDICATION OR NURSING QUESTIONS. YOUR PRESCRIPTIONS WERE SENT TO [facility]. Diet: AHA Activity: Fall precautions DME DME: Date Ordered: Name of Company: [employer] Services Needed: Name of Company: Date or Referral: IMMUNIZATION Influenza Vaccine Indicated: Influenza Vaccine Given: Date Given: Pneumonia Vaccine Indicated: No Pneumonia Vaccine Given: Date Given: Diet: AHA Activity: Fall precautions Followup: Dea Aldridge NP [Primary Care Provider] - Aakash Marr MD [ACTIVE - CAN ADMIT] - Time spent managing pt's care (in minutes): 30
== END 2020-12-31 18:28 | disposition home or self-care (01) | DRG 195 ==
LOC: ER 19:01 → ERHOLD 23:16 → 2ND 12-29 01:20 → OBSVTOIN 12-29 15:05
PROVIDERS: ADMIT Hospitalist; ATTEND Hospitalist
DX: J15.9 Unspecified bacterial pneumonia (principal); I10 Essential (primary) hypertension; R09.02 Hypoxemia; F32.9 Major depressive disorder, single episode, unspecified; M19.90 Unspecified osteoarthritis, unspecified site; Z20.822 Contact with and (suspected) exposure to COVID-19; Z96.659 Presence of unspecified artificial knee joint
CPT/HCPCS: 36415; 71045; 71046; 71275; 80048; 80053; 80076; 82728; 82947; 83735; 83880; 84100; 84145; 84484; 85025; 85610; 86140; 87040; 87804; 87807; 93005; 94640; 94760; 96374; 96375; 99284; G0378; J0456; J0696; J1650; J1940; J2920; J2930; J7030; J7050; J7512; Q9967; U0003

== ENCOUNTER 2023-06-12 08:39 | Inpatient (IN) | payer OTHER ==
--- OUTSIDE RECORDS SUMMARY | 2023-06-12 08:43 | XMS REPORT | Continuity of Care Document ---
Author Name Unknown Address [address] [facility]. [address] [id number] [facility] Address [address] [facility] [address] [place] [address] Care Team Providers Care Professor Of Floriculture Name Role Phone MAURA WARREN Attending Clinician Unavailable CARMINE DOMINGUEZ Attending Clinician Unavailable Carmine Dominguez MD Attending Clinician Pob, [facility] Attending Clinician UnavailYuan Alanis MD Attending Clinician [phone] YUAN CREWS Attending Clinician Unavail able YUAN CREWS Attending Clinician Unavail able Doctor Unassigned, [place] Attending Clinician U DR BELKYS Smith Attending Clinician Unavailable DR BELKYS HERNANDEZ Admitting Clinician Unavailable Payers Payer Name Policy Type Policy Number Effective Date Expirati on Date Source [employer] MEDICARE ADV [id number] 1 00:00:00 Problems Condition Name Condition Details Condition Category Status Onset Date Resolution Date Last Treatment Date Treating Clinician Comments Source Overactive bladder Overactive bladder Disease Active - 00:00: 00 [facility] Morbid obesity with body mass index of 40.0-49.9 Morbid obesity with body mass index of 40.0-49.9 Disease Active 01-02 00:00: 00 [facility] Post-op pain Post-op pain Disease Active 01-02 00:00: 00 [facility] Allergies, Adverse Reactions, Alerts Allergy Name Allergy Type Status Severity Reaction(s) Onset Date Inactive Date Treating Clinician Comments Source Penicill ins Propensi ty to adverse reaction s Active Hives 12-31 00:00: 00 [facility] PENICILL INS Drug Class Active Hives 12-31 00:00: 00 [facility] Social History Social Habit Start Date Stop Date Quantity Comments Source History SDOH Alcohol Std Drinks [facility] History SDOH Alcohol Binge [facility] Sex Assigned At [facility] Exposure to SARS-CoV-2 (event) Not sure [facility] Tobacco use and exposure 2019-10-16 00:00:00 2019-10-16 00:00:00 Never used [facility] Alcohol intake 2019-10-16 00:00:00 2019-10-16 00:00:00 Lifetime non-drinker (finding) [facility] History SDOH Alcohol Frequency 2019-01-08 00:00:00 2019-01-08 00:00:00 1 [facility] Alcohol Comment 2016-12-31 00:00:00 2016-12-31 00:00:00 Social Drinker [facility] Smoking Status Start Date Stop Date Source Never smoker [facility] Medications Ordered Medication Name Filled Medication Name Start Date Stop Date Current Medication? Ordering Clinician Indication Dosage Frequency Signature (SIG) Comments Components Source oxybutynin 10 mg 24 hr tablet 11-11 00:00: 00 Yes [id number] 10mg Take 1 tablet by mouth daily. [facility] oxybutynin 10 mg 24 hr tablet 11-11 00:00: 00 Yes [id number] 10mg Take 1 tablet by mouth daily. [facility] oxybutynin 10 mg 24 hr tablet 11-11 00:00: 00 Yes [id number] 10mg Take 1 tablet by mouth daily. [facility] oxybutynin 10 mg 24 hr tablet 11-11 00:00: 00 Yes [id number] 10mg Take 1 tablet by mouth daily. [facility] oxybutynin 10 mg 24 hr tablet 11-11 00:00: 00 Yes [id number] 10mg Take 1 tablet by mouth daily. [facility] oxybutynin 10 mg 24 hr tablet 11-11 00:00: 00 Yes [id number] 10mg Take 1 tablet by mouth daily. [facility] oxybutynin 10 mg 24 hr tablet 2020-0 8-06 00:00: 00 Yes [id number] 10mg Take 1 tablet by mouth daily. [facility] oxybutynin 10 mg 24 hr tablet 7-10 00:00: 00 Yes [id number] 10mg Take 1 tablet by mouth daily. [facility] oxybutynin 10 mg 24 hr tablet 7 00:00: 00 Yes [id number] 10mg Take 1 tablet by mouth daily. [facility] oxybutynin 10 mg 24 hr tablet 10-15 00:00: 00 11-11 00:00 :00 No [id number] 10mg Take 1 tablet by mouth daily. [facility] sulfamethox azole-trime thoprim (BACTRIM DS) 800-160 mg per tablet 6 00:00: 00 Yes [id number] 1{tbl} Take 1 tablet by mouth 2 (two) times daily. [facility] sulfamethox azole-trime thoprim (BACTRIM DS) 800-160 mg per tablet 6 00:00: 00 Yes [id number] 1{tbl} Take 1 tablet by mouth 2 (two) times daily. [facility] sulfamethox azole-trime thoprim (BACTRIM DS) 800-160 mg per tablet 09-14 00:00: 10-15 00:00 :00 No [id number] 1{tbl} Take 1 tablet by mouth 2 (two) times daily. [facility] sulfamethox azole-trime thoprim (BACTRIM DS) 800-160 mg per tablet 09-14 00:00: 10-15 00:00 :00 No [id number] 1{tbl} Take 1 tablet by mouth 2 (two) times daily. [facility] Naproxen-Es omeprazole Mag (VIMOVO) 500-20 mg per tablet 605 14:57: 03 Yes Take by mouth 2 (two) times daily. [facility] Naproxen-Es omeprazole Mag (VIMOVO) 500-20 mg per tablet 2020-0 6-05 14:57: 03 Yes Take by mouth 2 (two) times daily. [facility] Naproxen-Es omeprazole Mag (VIMOVO) 500-20 mg per tablet 2020-0 6-05 14:57: 03 Yes Take by mouth 2 (two) times daily. [facility] Naproxen-Es omeprazole Mag (VIMOVO) 500-20 mg per tablet 2020-0 6-05 14:57: 03 Yes Take by mouth 2 (two) times daily. [facility] Naproxen-Es omeprazole Mag (VIMOVO) 500-20 mg per tablet 2020-0 6-05 14:57: 03 Yes Take by mouth 2 (two) times daily. [facility] Naproxen-Es omeprazole Mag (VIMOVO) 500-20 mg per tablet 2020-0 6-05 14:57: 03 Yes Take by mouth 2 (two) times daily. [facility] Naproxen-Es omeprazole Mag (VIMOVO) 500-20 mg per tablet 2020-0 6-05 14:57: 03 Yes Take by mouth 2 (two) times daily. [facility] Naproxen-Es omeprazole Mag (VIMOVO) 500-20 mg per tablet 2020-0 6-05 14:57: 03 Yes Take by mouth 2 (two) times daily. [facility] Naproxen-Es omeprazole Mag (VIMOVO) 500-20 mg per tablet 2020-0 6-05 14:57: 03 Yes Take by mouth 2 (two) times daily. [facility] Naproxen-Es omeprazole Mag (VIMOVO) 500-20 mg per tablet 2020-0 6-05 14:57: 03 Yes Take by mouth 2 (two) times daily. [facility] Naproxen-Es omeprazole Mag (VIMOVO) 500-20 mg per tablet 2020-0 6-05 14:57: 03 Yes Take by mouth 2 (two) times daily. [facility] Naproxen-Es omeprazole Mag (VIMOVO) 500-20 mg per tablet 2020-0 6-05 14:57: 03 Yes Take by mouth 2 (two) times daily. [facility] Naproxen-Es omeprazole Mag (VIMOVO) 500-20 mg per tablet 09-10 14:57: 03 Yes Take by mouth 2 (two) times daily. [facility] venlafaxine XR 150 mg 24 hr capsule 09-10 14:26: 28 Yes 150mg Take 150 mg by mouth daily with breakfast. [facility] venlafaxine XR 150 mg 24 hr capsule 09-10 14:26: 28 Yes 150mg Take 150 mg by mouth daily with breakfast. [facility] venlafaxine XR 150 mg 24 hr capsule 09-10 14:26: 28 Yes 150mg Take 150 mg by mouth daily with breakfast. [facility] venlafaxine XR 150 mg 24 hr capsule 09-10 14:26: 28 Yes 150mg Take 150 mg by mouth daily with breakfast. [facility] venlafaxine XR 150 mg 24 hr capsule 09-10 14:26: 28 Yes 150mg Take 150 mg by mouth daily with breakfast. [facility] venlafaxine XR 150 mg 24 hr capsule 09-10 14:26: 28 Yes 150mg Take 150 mg by mouth daily with breakfast. [facility] venlafaxine XR 150 mg 24 hr capsule 09-10 14:26: 28 Yes 150mg Take 150 mg by mouth daily with breakfast. [facility] venlafaxine XR 150 mg 24 hr capsule 09-10 14:26: 28 Yes 150mg Take 150 mg by mouth daily with breakfast. [facility] venlafaxine XR 150 mg 24 hr capsule 09-10 14:26: 28 Yes 150mg Take 150 mg by mouth daily with breakfast. [facility] venlafaxine XR 150 mg 24 hr capsule 09-10 14:26: 28 Yes 150mg Take 150 mg by mouth daily with breakfast. [facility] venlafaxine XR 150 mg 24 hr capsule 09-10 14:26: 28 Yes 150mg Take 150 mg by mouth daily with breakfast. [facility] venlafaxine XR 150 mg 24 hr capsule 09-10 14:26: 28 Yes 150mg Take 150 mg by mouth daily with breakfast. [facility] venlafaxine XR 150 mg 24 hr capsule 6 14:26: 28 Yes 150mg Take 150 mg by mouth daily with breakfast. [facility] GABAPENTIN ORAL 6 14:26: 05 Yes Take by mouth. Indication s: every 6 hours [facility] tramadol HCl (TRAMADOL ORAL) 605 14:26: 05 Yes Take by mouth. Indication s: every 6 hours [facility] GABAPENTIN ORAL 0 6 14:26: 05 Yes Take by mouth. Indication s: every 6 hours [facility] tramadol HCl (TRAMADOL ORAL) 6 14:26: 05 Yes Take by mouth. Indication s: every 6 hours [facility] GABAPENTIN ORAL 6 14:26: 05 Yes Take by mouth. Indication s: every 6 hours [facility] tramadol HCl (TRAMADOL ORAL) 6 14:26: 05 Yes Take by mouth. Indication s: every 6 hours [facility] GABAPENTIN ORAL 6 14:26: 05 Yes Take by mouth. Indication s: every 6 hours [facility] tramadol HCl (TRAMADOL ORAL) 6 14:26: 05 Yes Take by mouth. Indication s: every 6 hours [facility] GABAPENTIN ORAL 0 6 14:26: 05 Yes Take by mouth. Indication s: every 6 hours [facility] tramadol HCl (TRAMADOL ORAL) 605 14:26: 05 Yes Take by mouth. Indication s: every 6 hours [facility] GABAPENTIN ORAL 0 605 14:26: 05 Yes Take by mouth. Indication s: every 6 hours [facility] tramadol HCl (TRAMADOL ORAL) 605 14:26: 05 Yes Take by mouth. Indication s: every 6 hours [facility] GABAPENTIN ORAL 0 605 14:26: 05 Yes Take by mouth. Indication s: every 6 hours [facility] tramadol HCl (TRAMADOL ORAL) 09-10 14:26: 05 Yes Take by mouth. Indication s: every 6 hours [facility] GABAPENTIN ORAL 09-10 14:26: 05 Yes Take by mouth. Indication s: every 6 hours [facility] tramadol HCl (TRAMADOL ORAL) 09-10 14:26: 05 Yes Take by mouth. Indication s: every 6 hours [facility] GABAPENTIN ORAL 09-10 14:26: 05 Yes Take by mouth. Indication s: every 6 hours [facility] tramadol HCl (TRAMADOL ORAL) 09-10 14:26: 05 Yes Take by mouth. Indication s: every 6 hours [facility] GABAPENTIN ORAL 09-10 14:26: 05 Yes Take by mouth. Indication s: every 6 hours [facility] tramadol HCl (TRAMADOL ORAL) 09-10 14:26: 05 Yes Take by mouth. Indication s: every 6 hours [facility] GABAPENTIN ORAL 09-10 14:26: 05 Yes Take by mouth. Indication s: every 6 hours [facility] tramadol HCl (TRAMADOL ORAL) 09-10 14:26: 05 Yes Take by mouth. Indication s: every 6 hours [facility] GABAPENTIN ORAL 09-10 14:26: 05 Yes Take by mouth. Indication s: every 6 hours [facility] tramadol HCl (TRAMADOL ORAL) 09-10 14:26: 05 Yes Take by mouth. Indication s: every 6 hours [facility] GABAPENTIN ORAL 09-10 14:26: 05 Yes Take by mouth. Indication s: every 6 hours [facility] tramadol HCl (TRAMADOL ORAL) 09-10 14:26: 05 Yes Take by mouth. Indication s: every 6 hours [facility] lisinopril 10 mg tablet 09-10 14:25: 24 Yes 10mg Take 10 mg by mouth daily. [facility] esomeprazol e (NEXIUM) 20 mg capsule 0 09-10 14:25: 24 Yes 20mg Take 20 mg by mouth daily before a meal. Indication s: otc nexium [facility] lisinopril 10 mg tablet 09-10 14:25: 24 Yes 10mg Take 10 mg by mouth daily. [facility] esomeprazol e (NEXIUM) 20 mg capsule 09-10 14:25: 24 Yes 20mg Take 20 mg by mouth daily before a meal. Indication s: otc nexium [facility] lisinopril 10 mg tablet 09-10 14:25: 24 Yes 10mg Take 10 mg by mouth daily. [facility] esomeprazol e (NEXIUM) 20 mg capsule 09-10 14:25: 24 Yes 20mg Take 20 mg by mouth daily before a meal. Indication s: otc nexium [facility] lisinopril 10 mg tablet 09-10 14:25: 24 Yes 10mg Take 10 mg by mouth daily. [facility] esomeprazol e (NEXIUM) 20 mg capsule 09-10 14:25: 24 Yes 20mg Take 20 mg by mouth daily before a meal. Indication s: otc nexium [facility] lisinopril 10 mg tablet 09-10 14:25: 24 Yes 10mg Take 10 mg by mouth daily. [facility] esomeprazol e (NEXIUM) 20 mg capsule 09-10 14:25: 24 Yes 20mg Take 20 mg by mouth daily before a meal. Indication s: otc nexium [facility] lisinopril 10 mg tablet 09-10 14:25: 24 Yes 10mg Take 10 mg by mouth daily. [facility] esomeprazol e (NEXIUM) 20 mg capsule 09-10 14:25: 24 Yes 20mg Take 20 mg by mouth daily before a meal. Indication s: otc nexium [facility] lisinopril 10 mg tablet 09-10 14:25: 24 Yes 10mg Take 10 mg by mouth daily. [facility] esomeprazol e (NEXIUM) 20 mg capsule 2019-0 09-10 14:25: 24 Yes 20mg Take 20 mg by mouth daily before a meal. Indication s: otc nexium [facility] lisinopril 10 mg tablet 09-10 14:25: 24 Yes 10mg Take 10 mg by mouth daily. [facility] esomeprazol e (NEXIUM) 20 mg capsule 09-10 14:25: 24 Yes 20mg Take 20 mg by mouth daily before a meal. Indication s: otc nexium [facility] lisinopril 10 mg tablet 09-10 14:25: 24 Yes 10mg Take 10 mg by mouth daily. [facility] esomeprazol e (NEXIUM) 20 mg capsule 09-10 14:25: 24 Yes 20mg Take 20 mg by mouth daily before a meal. Indication s: otc nexium [facility] lisinopril 10 mg tablet 09-10 14:25: 24 Yes 10mg Take 10 mg by mouth daily. [facility] esomeprazol e (NEXIUM) 20 mg capsule 09-10 14:25: 24 Yes 20mg Take 20 mg by mouth daily before a meal. Indication s: otc nexium [facility] lisinopril 10 mg tablet 09-10 14:25: 24 Yes 10mg Take 10 mg by mouth daily. [facility] esomeprazol e (NEXIUM) 20 mg capsule 09-10 14:25: 24 Yes 20mg Take 20 mg by mouth daily before a meal. Indication s: otc nexium [facility] lisinopril 10 mg tablet 09-10 14:25: 24 Yes 10mg Take 10 mg by mouth daily. [facility] esomeprazol e (NEXIUM) 20 mg capsule 09-10 14:25: 24 Yes 20mg Take 20 mg by mouth daily before a meal. Indication s: otc nexium [facility] lisinopril 10 mg tablet 09-10 14:25: 24 Yes 10mg Take 10 mg by mouth daily. [facility] esomeprazol e (NEXIUM) 20 mg capsule 09-10 14:25: 24 Yes 20mg Take 20 mg by mouth daily before a meal. Indication s: otc nexium [facility] oxybutynin 10 mg 24 hr tablet 09-10 00:00: 00 Yes [id number] 10mg Take 1 tablet by mouth daily. [facility] oxybutynin 10 mg 24 hr tablet 09-10 00:00: 00 Yes [id number] 10mg Take 1 tablet by mouth daily. [facility] oxybutynin 10 mg 24 hr tablet 09-10 00:00: 00 Yes [id number] 10mg Take 1 tablet by mouth daily. [facility] oxybutynin 10 mg 24 hr tablet 09-10 00:00: 00 Yes [id number] 10mg Take 1 tablet by mouth daily. [facility] oxybutynin 10 mg 24 hr tablet 09-10 00:00: 00 10-15 00:00 :00 No [id number] 10mg Take 1 tablet by mouth daily. [facility] oxybutynin 10 mg 24 hr tablet 09-10 00:00: 00 10-15 00:00 :00 No [id number] 10mg Take 1 tablet by mouth daily. [facility] leflunomide 20 mg tablet 08-10 00:00: 00 Yes 20mg Take 20 mg by mouth daily. [facility] leflunomide 20 mg tablet 08-10 00:00: 00 Yes 20mg Take 20 mg by mouth daily. [facility] leflunomide 20 mg tablet 08-10 00:00: 00 Yes 20mg Take 20 mg by mouth daily. [facility] leflunomide 20 mg tablet 08-10 00:00: 00 Yes 20mg Take 20 mg by mouth daily. [facility] leflunomide 20 mg tablet 08-10 00:00: 00 Yes 20mg Take 20 mg by mouth daily. [facility] leflunomide 20 mg tablet 08-10 00:00: 00 Yes 20mg Take 20 mg by mouth daily. [facility] leflunomide 20 mg tablet 08-10 00:00: 00 Yes 20mg Take 20 mg by mouth daily. [facility] leflunomide 20 mg tablet 08-10 00:00: 00 Yes 20mg Take 20 mg by mouth daily. [facility] leflunomide 20 mg tablet 08-10 00:00: 00 Yes 20mg Take 20 mg by mouth daily. [facility] leflunomide 20 mg tablet 08-10 00:00: 00 Yes 20mg Take 20 mg by mouth daily. [facility] leflunomide 20 mg tablet 08-10 00:00: 00 Yes 20mg Take 20 mg by mouth daily. [facility] leflunomide 20 mg tablet 08-10 00:00: 00 Yes 20mg Take 20 mg by mouth daily. [facility] leflunomide 20 mg tablet 08-10 00:00: 00 Yes 20mg Take 20 mg by mouth daily. [facility] esomeprazol e 40 mg capsule 2018-04 15:43: 30 Yes 40mg Take 40 mg by mouth daily with breakfast. [facility] esomeprazol e 40 mg capsule 2018-04 15:43: 30 Yes 40mg Take 40 mg by mouth daily with breakfast. [facility] esomeprazol e 40 mg capsule 2018-04 15:43: 30 Yes 40mg Take 40 mg by mouth daily with breakfast. [facility] esomeprazol e 40 mg capsule 2018-04 15:43: 30 Yes 40mg Take 40 mg by mouth daily with breakfast. [facility] esomeprazol e 40 mg capsule 2018-04 15:43: 30 Yes 40mg Take 40 mg by mouth daily with breakfast. [facility] esomeprazol e 40 mg capsule 2018-04 15:43: 30 Yes 40mg Take 40 mg by mouth daily with breakfast. [facility] esomeprazol e 40 mg capsule 2018-04 15:43: 30 Yes 40mg Take 40 mg by mouth daily with breakfast. [facility] esomeprazol e 40 mg capsule 2018-04 15:43: 30 Yes 40mg Take 40 mg by mouth daily with breakfast. [facility] esomeprazol e 40 mg capsule 2018-04 15:43: 30 Yes 40mg Take 40 mg by mouth daily with breakfast. [facility] esomeprazol e 40 mg capsule 2018-04 15:43: 30 Yes 40mg Take 40 mg by mouth daily with breakfast. [facility] esomeprazol e 40 mg capsule 2018-04 15:43: 30 Yes 40mg Take 40 mg by mouth daily with breakfast. [facility] Naproxen-Es omeprazole Mag (VIMOVO) 500-20 mg per tablet 2018-04 15:43: 30 Yes Take by mouth 2 (two) times daily. [facility] lisinopril 10 mg tablet 2018-04 15:43: 30 Yes 10mg Take 10 mg by mouth daily. [facility] venlafaxine XR 150 mg 24 hr capsule 2018-04 15:43: 30 Yes 150mg Take 150 mg by mouth daily with breakfast. [facility] GABAPENTIN ORAL 2018-04 15:43: 30 Yes Take by mouth. Indication s: every 6 hours [facility] tramadol HCl (TRAMADOL ORAL) 2018-04 15:43: 30 Yes Take by mouth. Indication s: every 6 hours [facility] esomeprazol e (NEXIUM) 20 mg capsule 2018-04 15:43: 30 Yes 20mg Take 20 mg by mouth daily before a meal. Indication s: otc nexium [facility] esomeprazol e 40 mg capsule 2018-04 15:43: 30 Yes 40mg Take 40 mg by mouth daily with breakfast. [facility] Naproxen-Es omeprazole Mag (VIMOVO) 500-20 mg per tablet 2018-04 15:43: 30 Yes Take by mouth 2 (two) times daily. [facility] lisinopril 10 mg tablet 2018-04 15:43: 30 Yes 10mg Take 10 mg by mouth daily. [facility] venlafaxine XR 150 mg 24 hr capsule 2018-04 15:43: 30 Yes 150mg Take 150 mg by mouth daily with breakfast. [facility] GABAPENTIN ORAL 2018-04 15:43: 30 Yes Take by mouth. Indication s: every 6 hours [facility] tramadol HCl (TRAMADOL ORAL) 2018-04 15:43: 30 Yes Take by mouth. Indication s: every 6 hours [facility] esomeprazol e (NEXIUM) 20 mg capsule 2018-04 15:43: 30 Yes 20mg Take 20 mg by mouth daily before a meal. Indication s: otc nexium [facility] esomeprazol e 40 mg capsule 2018-04 15:43: 30 Yes 40mg Take 40 mg by mouth daily with breakfast. [facility] esomeprazol e 40 mg capsule 2018-04 15:43: 30 Yes 40mg Take 40 mg by mouth daily with breakfast. [facility] esomeprazol e 40 mg capsule 2018-04 15:43: 30 Yes 40mg Take 40 mg by mouth daily with breakfast. [facility] HYDROcodone -acetaminop hen 5-325 mg tablet 2018-04 00:00: 00 Yes [id number] 1{tbl} Take 1-2 tablets by mouth every 6 (six) hours as needed for Pain (scale 7-10). [facility] HYDROcodone -acetaminop hen 5-325 mg tablet 2018-04 00:00: 00 Yes [id number] 1{tbl} Take 1-2 tablets by mouth every 6 (six) hours as needed for Pain (scale 7-10). [facility] HYDROcodone -acetaminop hen 5-325 mg tablet 2018-04 00:00: 00 Yes [id number] 1{tbl} Take 1-2 tablets by mouth every 6 (six) hours as needed for Pain (scale 7-10). [facility] HYDROcodone -acetaminop hen 5-325 mg tablet 2018-04 00:00: 00 Yes [id number] 1{tbl} Take 1-2 tablets by mouth every 6 (six) hours as needed for Pain (scale 7-10). [facility] HYDROcodone -acetaminop hen 5-325 mg tablet 2018-04 00:00: 00 Yes [id number] 1{tbl} Take 1-2 tablets by mouth every 6 (six) hours as needed for Pain (scale 7-10). [facility] HYDROcodone -acetaminop hen 5-325 mg tablet 2018-04 00:00: 00 Yes [id number] 1{tbl} Take 1-2 tablets by mouth every 6 (six) hours as needed for Pain (scale 7-10). [facility] HYDROcodone -acetaminop hen 5-325 mg tablet 2018-04 00:00: 00 Yes [id number] 1{tbl} Take 1-2 tablets by mouth every 6 (six) hours as needed for Pain (scale 7-10). [facility] HYDROcodone -acetaminop hen 5-325 mg tablet 2018-04 00:00: 00 Yes [id number] 1{tbl} Take 1-2 tablets by mouth every 6 (six) hours as needed for Pain (scale 7-10). [facility] HYDROcodone -acetaminop hen 5-325 mg tablet 2018-04 00:00: 00 Yes [id number] 1{tbl} Take 1-2 tablets by mouth every 6 (six) hours as needed for Pain (scale 7-10). [facility] HYDROcodone -acetaminop hen 5-325 mg tablet 2018-04 00:00: 00 Yes [id number] 1{tbl} Take 1-2 tablets by mouth every 6 (six) hours as needed for Pain (scale 7-10). [facility] HYDROcodone -acetaminop hen 5-325 mg tablet 2018-04 00:00: 00 Yes [id number] 1{tbl} Take 1-2 tablets by mouth every 6 (six) hours as needed for Pain (scale 7-10). [facility] HYDROcodone -acetaminop hen 5-325 mg tablet 2018-04 00:00: 00 Yes [id number] 1{tbl} Take 1-2 tablets by mouth every 6 (six) hours as needed for Pain (scale 7-10). [facility] HYDROcodone -acetaminop hen 5-325 mg tablet 2018-04 00:00: 00 Yes [id number] 1{tbl} Take 1-2 tablets by mouth every 6 (six) hours as needed for Pain (scale 7-10). [facility] HYDROcodone -acetaminop hen 5-325 mg tablet 2018-04 00:00: 00 Yes [id number] 1{tbl} Take 1-2 tablets by mouth every 6 (six) hours as needed for Pain (scale 7-10). [facility] HYDROcodone -acetaminop hen 5-325 mg tablet 2018-04 00:00: 00 Yes [id number] 1{tbl} Take 1-2 tablets by mouth every 6 (six) hours as needed for Pain (scale 7-10). [facility] Vital Signs Vital Name Observation Time Observation Value Comments S ource Systolic blood pressure 2020-01-12 13:18:00 91 mm[Hg] [facility] Diastolic blood pressure 2020-01-12 13:18:00 57 mm[Hg] [facility] Heart rate 2020-01-12 13:18:00 91 /min [facility] Body height 2020-01-12 13:18:00 154.9 cm [facility] Body weight 2020-01-12 13:18:00 115.849 kg [facility] BMI 2020-01-12 13:18:00 48.26 kg/m2 [facility] Oxygen saturation in Arterial blood by Pulse oximetry 2020-01-12 13:18:00 95 /min [facility] Systolic blood pressure 2019-10-16 15:11:00 109 mm[Hg] [facility] Diastolic blood pressure 2019-10-16 15:11:00 69 mm[Hg] [facility] Heart rate 2019-10-16 15:11:00 82 /min [facility] Body temperature 2019-10-16 15:11:00 36.72 Kerry [facility] Respiratory rate 2019-10-16 15:11:00 18 /min [facility] Body height 2019-10-16 15:11:00 154.9 cm [facility] Body weight 2019-10-16 15:11:00 112.946 kg [facility] BMI 2019-10-16 15:11:00 47.05 kg/m2 [facility] Systolic blood pressure 2019-09-11 14:24:00 117 mm[Hg] [facility] Diastolic blood pressure 2019-09-11 14:24:00 71 mm[Hg] [facility] Heart rate 2019-09-11 14:24:00 110 /min [facility] 2019-09-11 14:24:00 36.89 Kerry [facility] Respiratory rate 2019-09-11 14:24:00 18 /min [facility] Body height 2019-09-11 14:24:00 154.9 cm [facility] Body weight 2019-09-11 14:24:00 112.492 kg [facility] BMI 2019-09-11 14:24:00 46.86 kg/m2 [facility] Procedures Procedure Date / Time Performed Performing Clinicia n Source ASSIGNMENT OF BENEFITS 2020-01-12 13:06:26 Docto r Unassigned, [place] [facility] REFERRAL- REQUEST/RESPONSE 2019-12-22 05:01:00 Doctor Unassigned, [place] [facility] NOTICE OF BILLING PRACTICES FOR MEDICARE PATIENTS 2019-09-11 14:06:10 Doctor Unassigned, [place] [facility] POCT URINALYSIS W/O SPECIFIC GRAVITY 2019-09-11 00:00:00 Carmine Dominguez [facility] REFERRAL- REQUEST/RESPONSE 2019-08-12 05:01:00 Doctor Unassigned, [place] [facility] Encounters Start Date/Time End Date/Time Encounter Type Admission Type Attending Clinicians Care Facility Care Department Encounter ID Source 2020-12-06 15:00:00 2020-12-06 15:00:00 Outpatient MAURA ANGELES [facility] [id number] [facility] 2020-10-21 09:00:00 2020-10-21 09:00:00 Outpatient CARMINE BURROUGHS [facility] [id number] [facility] 2020-06-10 08:15:50 2020-06-10 23:59:00 Hospital Encounter Carmine Dominguez [facility] [id number] [facility] 2020-06-10 00:00:00 2020-06-10 00:00:00 Outpatient CARMINE BURROUGHS [facility] [id number] [facility] 2020-06-07 00:00:00 2020-06-07 00:00:00 Outpatient Benigno DOMINGUEZ CARMINE [facility] [id number] [facility] 2020-01-12 10:24:56 2020-01-12 10:39:56 Stud Driver Visit Pob, Adc Lab Main Yuan Crews [facility] [id number] [id number] [id number] [facility] 2020-01-12 08:07:20 2020-01-12 09:27:01 Office Visit Yuan Crews [facility] [id number] [id number] [id number] [id number] [facility] 2020-01-12 08:00:00 2020-01-12 08:00:00 Outpatient YUAN SALGUEROYUAN [facility] [id number] [facility] 2020-01-12 00:00:00 2020-01-12 00:00:00 Orders Only Doctor Unassigned, [place] [facility] 1.20.114 350.1.13.10 4.2.7.2.686 [id number] [facility] 2019-12-22 00:00:00 2019-12-22 00:00:00 Orders Only Doctor Unassigned, [place] [facility] [id number] 350.1.13.10 4.2.7.2.686 [id number] [facility] 2019-11-10 00:00:00 2019-11-10 00:00:00 Refill Adtiff Carmine Jodie [facility] 1.84.114 [id number] 4.2.7.2.686 [id number] [facility] 2019-10-16 10:02:18 2019-10-16 11:04:08 Office Visit AdMichelle matthewian Jodie [facility] 1.84.114 350.1.13.10 4.2.7.2.686 [id number] [facility] 2019-10-16 10:00:00 2019-10-16 10:00:00 Outpatient R CARMINE DOMINGUEZ [facility] [id number] [facility] 2019-10-03 00:00:00 2019-10-03 00:00:00 Refill Adtiff Carmine Jodie [facility] 1.84.114 350.1.13.10 4.2.7.2.686 [id number] [facility] 2019-09-15 00:00:00 2019-09-15 00:00:00 Case Management AdumMichelleCarmine Jodie [facility] [id number] 350.1.13.10 4.2.7.2.686 [id number] [facility] 2019-09-11 09:06:08 2019-09-11 10:34:47 Office Visit Carmine Dominguez [facility] Toni Kong [facility] [id number] 350.1.13.10 4.2.7.2.686 [id number] [facility] 2019-09-11 09:00:00 2019-09-11 09:00:00 Outpatient R CARMINE DOMINGUEZ [facility] [id number] [facility] 2019-09-11 00:00:00 2019-09-11 00:00:00 Orders Only Doctor Unassigned, [place] [id number] 350.1.13.10 4.2.7.2.686 [id number] [facility] 2019-08-12 00:00:00 2019-08-12 00:00:00 Orders Only Doctor Unassigned, [place] [id number] 350.1.13.10 4.2.7.2.686 [id number] [facility] 2017-07-10 06:02:00 2017-07-10 09:14:00 [facility] [id number] [facility] 2017-06-26 05:48:00 2017-06-26 08:00:00 Outpatient [facility] BENEDICT Zhu [id number] [facility] Results Test Description Test Time Test Comments Results Result Co mments Source [facility]O SPECIFIC [id number] 15:33:00* Test Item Value Reference Range Interpretation Comme nts POCT PH U (test code = 3254) 5 mg/dl 5-8 POCT U LEUK EST (test code = 3263) 2+ Negative - Negative POCT U NIT (test code = 3262) Negative Negative - Negati ve POCT U PROT (test code = 3259) Trace Negative - Negat maranda POCT U GLU (test code = 3256) Trace Negative - Negati ve POCT U KETONE (test code = 3258) Negative Negative - Neg ative POCT U BLD (test code = 3257) 5+ Negative - Negati ve [facility]
[2023-06-12] MEDS ORDERED: NA CHLORIDE 0.9% 1,000 ML ONE ×4 (09:09→11:46)
[2023-06-12 09:13] LABS: Absolute Basophils 0.1 K/uL (0-0.5); Absolute Eosinophils 0.1 K/uL (0-0.5); Absolute Lymphocytes (CBC) 0.8 K/uL (0.7-4.9); Absolute Monocytes 1.3 K/uL (0.1-1.3); Absolute Neutrophil 14.8 K/uL (1.8-8.0); Basophils % 0.7 % (0-1.3); Eosinophils % 0.6 % (0-4.4); Hematocrit 38.2 % (36.0-45.0); Hemoglobin 12.6 g/dL (12.0-15.0); Lymphocytes % 4.5 % (15.3-44.8); MCH 35.7 pg (27.0-35.0); MCHC 33.1 g/dL (32.0-36.0); MCV 108.1 fL (80-100); MPV 7.3 fL (7.6-11.3); Monocytes % 7.5 % (3.3-12.3); Neutrophils % 86.7 % (41.7-73.7); Platelets 309 thou/uL (152-406); RBC Red Blood Cell Count 3.53 M/uL (3.86-4.86)
--- NOTE | 2023-06-12 09:22 | RAD REPORT ---
EXAM DESCRIPTION: RADChest Single View06/12/2023 9:16 am CLINICAL HISTORY: DYSPNEA COMPARISON: Chest Single View dated 06/07/2023; Chest Single View dated 12/31/2020; Chest Single View d ated 12/30/2020; Chest Pa And Lat (2 Views) dated 12/28/2020 TECHNIQUE: Portable AP view of the chest. FINDINGS: Progressive patchy mid to basilar airspace opacities with interstitial prominence. These a re now most pronounced in the peripheral left lung. No pneumothorax. Blunting of the left costophren ic angle may indicate a small effusion. The cardiomediastinal contours are unremarkable. IMPRESSION: Progressive patchy airspace opacities particularly on the left, with possible small left effusion. Findings suggest pneumonia versus worsening pulmonary edema.
[2023-06-12 09:29] LABS: PT Prothrombin Time 14.3 SECONDS (9.5-12.5); PTT, Activated Partial Thromb 29.9 SECONDS (24.3-36.9); Protime INR 1.31
[2023-06-12 09:31] LABS: Albumin 2.6 g/dL (3.4-5.0); Albumin/Globulin Ratio 0.7 (1.1-1.8); Anion Gap 8.9 mEq/L (5.0-15.0); Bilirubin Total 1.5 mg/dL (0.2-1.0); Globulin 3.7 g/dL (2.3-3.5); Potassium 3.9 mEq/L (3.5-5.1); Protein, Total 6.3 g/dL (6.4-8.2)
[2023-06-12] MEDS ORDERED: CEFTRIAXONE 1000 MG/VIAL ONE (09:34)
[2023-06-12] MEDS ORDERED: AZITHROMYCIN 500 MG INJ IVPB ONE (09:34)
--- NOTE | 2023-06-12 09:41 | ER ---
Nurse's Notes [facility] Name: Jesi Valencia Age: 63 yrs Sex: Female : 1960 Arrival Date: 06/12/2023 Time: 08:39 Bed 2 Private MD: Diagnosis: Pneumonia, unspecified organism;Respiratory failure, unspecified with hypoxia;Severe sepsis with septic shock Presentation: 06/11 08:41 Chief complaint: Patient states: DX WITH PNEUMONIA SATURDAY, FAILED ABX THERAPY WITH bp WORSENING S/S, CODE SEPSIS CALLED. Coronavirus screen: At this time, the client does not indicate any symptoms associated with coronavirus-19. Ebola Screen: No symptoms or risks identified at this time. Initial Sepsis Screen: Does the patient meet any 2 criteria? RR > 20 per min. Temp <36.0*C (96.8*F)) or > 38.3*C (100.9*F). Systolic BP < 90 mmHg. HR > 90 bpm. Yes Does the patient have a suspected source of infection? Yes: Productive cough/pneumonia. Risk Assessment: Do you want to hurt yourself or someone else? Patient reports no desire to harm self or others. Onset of symptoms is unknown. 08:41 Method Of Arrival: Wheelchair bp 08:41 Acuity: ARDEN 2 bp Triage Assessment: 08:43 General: Appears distressed, uncomfortable, ill, obese, Behavior is cooperative, bp appropriate for age, anxious. Pain: Denies pain. Respiratory: Reports shortness of breath cough that is Airway is patent Respiratory effort is labored, Respiratory pattern is tachypnea Breath sounds are coarse bilaterally. Onset: The symptoms/episode began/occurred at an unknown time. the patient has moderate shortness of breath. Historical: - Allergies: 08:53 PENICILLINS; bp - PMHx: 08:53 Arthritis; DM2; Hypertension; bp - Immunization history:: Adult Immunizations up to date. - Social history:: Smoking status: Patient denies any tobacco usage or history of. Screenin:51 [facility] ED Fall Risk Assessment (Adult) History of falling in the last 3 months, kc6 including since admission No falls in past 3 months (0 pts) Confusion or Disorientation No (0 pts) Intoxicated or Sedated No (0 pts) Impaired Gait No (0 pts) Mobility Assist Device Used No (0 pt) Altered Elimination No (0 pt) Score/Fall Risk Level 0 - 2 = Low Risk. Abuse screen: Denies threats or abuse. Denies injuries from another. Nutritional screening: No deficits noted. Tuberculosis screening: No symptoms or risk factors identified. Assessment: 08:51 Reassessment: pt appears to be 60% on RA. pt placed on NRB. pt is now 96%. kc6 09:00 Cardiovascular: Rhythm is sinus tachycardia. ko1 10:00 Reassessment: Patient appears in no apparent distress at this time. No changes from 6 previously documented assessment. Patient and/or family updated on plan of care and expected duration. Pain level reassessed. Patient is alert, oriented x 3, equal unlabored respirations, skin warm/dry/pink. 11:00 Reassessment: Patient appears in no apparent distress at this time. No changes from 6 previously documented assessment. Patient and/or family updated on plan of care and expected duration. Pain level reassessed. Patient is alert, oriented x 3, equal unlabored respirations, skin warm/dry/pink. please see [facility] for further charting. Vital Signs: 08:41 BP 79 / 55; Pulse 121; Resp 24; Temp 96.6; Pulse Ox 75% on R/A; bp 09:13 BP 107 / 77; Pulse 107; Resp 20 S; Pulse Ox 97% on Non-rebreather mask; kc6 09:45 BP 94 / 63; Pulse 96; Resp 16 S; Pulse Ox 96% on Non-rebreather mask; kc6 10:00 BP 88 / 61; Pulse 90; Resp 20 S; Pulse Ox 98% on Non-rebreather mask; kc6 10:15 BP 76 / 58; Pulse 88; Resp 19 S; Pulse Ox 98% on Non-rebreather mask; kc6 10:20 BP 71 / 36; Pulse 87; Resp 20 S; Pulse Ox 86% on 6 lpm NC; kc6 10:22 BP 86 / 61; Pulse 91; Resp 20 S; Pulse Ox 87% on Non-rebreather mask; kc6 10:34 Weight 97.52 kg (M); kc6 10:40 BP 90 / 58; Pulse 85; Resp 19 S; Pulse Ox 93% on Non-rebreather mask; kc6 ED Course: 08:40 Patient arrived in ED. mg5 08:43 Satinder Forrester DO is Attending Physician. ms3 08:43 Arm band placed on. bp 08:51 Patient has correct armband on for positive identification. Placed in gown. Bed in low kc6 position. Call light in reach. Side rails up X2. Adult w/ patient. Client placed on continuous cardiac and pulse oximetry monitoring. NIBP monitoring applied. school bus monitor on. 08:52 Triage completed. bp 09:00 Provided Education on: na. Door closed. Noise minimized. Lights dimmed. Warm blanket ko1 given. Pillow given. 09:00 No provider procedures requiring assistance completed. ko1 09:14 Inserted saline lock: 20 gauge in left antecubital area, using aseptic technique. Blood kc6 collected. Oxygen administration via non-rebreather mask \T\ 15L/min. 09:15 Initial lab(s) drawn, by ED staff, sent to lab. EKG done, by ED staff, reviewed by ko1 Satinder Forrester DO. Inserted saline lock: 20 gauge in right forearm, using aseptic technique. Blood collected. 09:18 Chest Single View XRAY In Process Unspecified. EDMS 09:33 Mady Cole, RN is Primary Nurse. ko1 09:33 Blood Culture Adult (2) Sent. ko1 09:37 Ewa Hare MD is Hospitalizing Provider. ms3 10:14 Urinalysis w/ reflexes Sent. ko1 10:14 Urinalysis w/ reflexes Sent. ko1 10:15 Urine collected: straight cath specimen, justin colored, Amount Returned: 450mL. ko1 11:30 Patient admitted, IV remains in place. kc6 Administered Medications: 09:13 Drug: NS 0.9% IV 1000 ml IV at 1000 ml once Route: IV; Rate: 1000 ml; Site: left kc6 antecubital; 10:13 Follow up: Response: No adverse reaction; IV Status: Completed infusion; IV Intake: kc6 1000ml 09:41 Drug: Rocephin IV 1 grams IV at calculated rate once; Given slow IV push per pharmacy ko1 instructions Route: IV; Rate: calculated rate; Site: left antecubital; 11:30 Follow up: Response: No adverse reaction; IV Status: Completed infusion kc6 09:42 Drug: AZITHromycin IVPB 500 mg IVPB once over 1 hrs; (mix in 250 mL NS) Route: IVPB; ko1 Infused Over: 1 hrs; Site: left antecubital; 11:30 Follow up: Response: No adverse reaction; IV Status: Completed infusion; IV Intake: kc6 250ml 10:34 Drug: NS 0.9% IV (30 ml/kg) 30 ml/kg IV at bolus once; Sepsis Protocol Route: IV; Rate: kc6 bolus; Site: left antecubital; 11:30 Follow up: Response: No adverse reaction; IV Status: Completed infusion; IV Intake: kc6 2000ml Medication: 09:00 VIS not applicable for this client. ko1 Intake: 10:13 IV: 1000ml; Total: 1000ml. kc6 11:30 IV: 2000ml; Total: 3000ml. kc6 11:30 IV: 250ml; Total: 3250ml. kc6 Outcome: 09:40 Decision to Hospitalize by Provider. ms3 11:29 Admitted to ER Hold. Please see [facility] for further documentation. kc6 11:29 Condition: good 11:29 Instructed on the need for admit, 15:24 Patient left the ED. kc6 Signatures: Dispatcher [employer] EDMS Rick Rushing, RN RN Satinder Carranza DO DO ms3 Lala Dodson RN RN kc6 Mady Cole RN RN ko1 Fely Lofton mg5 Corrections: (The following items were deleted from the chart) 09:14 09:14 Inserted saline lock: 20 gauge in left antecubital area, using aseptic technique. kc6 Blood collected. kc6 10:40 10:22 Pulse Ox 93% Non-rebreather mask; kc6 kc6
--- NOTE | 2023-06-12 09:41 | EDPHYS ---
Physician Documentation [facility] Name: Jesi Valencia Age: 63 yrs Sex: Female : 1960 Arrival Date: 06/12/2023 Time: 08:39 Bed 2 Private MD: ED Physician Satinder Forrester HPI: 06/11 10:38 This 63 yrs old Female presents to ER via Wheelchair with complaints of ms3 Breathing Difficulty. 10:38 63-year-old female with past medical history of arthritis, diabetes mellitus type 2 ms3 presents to the emergency department for shortness of breath that has become worse since Saturday. Patient states she was seen in the emergency department on Saturday and diagnosed with pneumonia and started on Levaquin. Patient endorses fevers and chills. Patient denies nausea or vomiting. Patient states her discomfort is a 10/10.. Historical: - Allergies: 08:53 PENICILLINS; bp - PMHx: 08:53 Arthritis; DM2; Hypertension; bp - Immunization history:: Adult Immunizations up to date. - Social history:: Smoking status: Patient denies any tobacco usage or history of. ROS: 10:38 Cardiovascular: Negative for chest pain, and palpitations. Abdomen/GI: Negative for ms3 abdominal pain, nausea, vomiting, diarrhea, and constipation, MS/Extremity: Negative for injury and deformity, Skin: Negative for injury, rash, and discoloration, 10:38 Constitutional: Positive for chills, fever, 10:38 Respiratory: Positive for shortness of breath, Exam: 10:38 Constitutional: This is a well developed, well nourished patient who is awake, alert, ms3 and in no acute distress. ENT: Nares patent. No nasal discharge, no septal abnormalities noted. Tympanic membranes are normal and external auditory canals are clear. Oropharynx with no redness, swelling, or masses, exudates, or evidence of obstruction, uvula midline. Mucous membranes moist. Neck: Trachea midline, no cervical lymphadenopathy. Supple, full range of motion without nuchal rigidity, or vertebral point tenderness. No Meningismus. Chest/axilla: Normal chest wall appearance and motion. Nontender with no deformity. Abdomen/GI: Soft, non-tender, with normal bowel sounds. No distension or tympany. No guarding or rebound. No evidence of tenderness throughout. Skin: Warm, dry with normal turgor. Normal color with no rashes, no lesions, and no evidence of cellulitis. 10:38 Cardiovascular: Rate: tachycardic, Rhythm: regular, Pulses: no pulse deficits are appreciated, Heart sounds: normal, Edema: is not appreciated, 10:38 ECG was reviewed by the Attending Physician. Vital Signs: 08:41 BP 79 / 55; Pulse 121; Resp 24; Temp 96.6; Pulse Ox 75% on R/A; bp 09:13 BP 107 / 77; Pulse 107; Resp 20 S; Pulse Ox 97% on Non-rebreather mask; kc6 09:45 BP 94 / 63; Pulse 96; Resp 16 S; Pulse Ox 96% on Non-rebreather mask; kc6 10:00 BP 88 / 61; Pulse 90; Resp 20 S; Pulse Ox 98% on Non-rebreather mask; kc6 10:15 BP 76 / 58; Pulse 88; Resp 19 S; Pulse Ox 98% on Non-rebreather mask; kc6 10:20 BP 71 / 36; Pulse 87; Resp 20 S; Pulse Ox 86% on 6 lpm NC; kc6 10:22 BP 86 / 61; Pulse 91; Resp 20 S; Pulse Ox 87% on Non-rebreather mask; kc6 10:34 Weight 97.52 kg (M); kc6 10:40 BP 90 / 58; Pulse 85; Resp 19 S; Pulse Ox 93% on Non-rebreather mask; kc6 MDM: 08:48 Patient medically screened. ms3 10:36 ED course: Patient meets septic shock criteria at this time. A. PNA. B. HR and WBC. C. ms3 Patient with 2 SBP <90 mmHg. 30 ml/kg IVF currently running. . 10:37 ED course: Sepsis re-evaluation complete. . ms3 10:38 Differential diagnosis: Anemia pneumonia, Sepsis. Antibiotic administration: Rocephin ms3 and Zithromax given. Data reviewed: vital signs, nurses notes, lab test result(s), radiologic studies, and as a result, I will discharge patient. Consideration of Admission/Observation Patient was admitted/placed on observation. Management of patient was discussed with the following: Hospitalist: Dr Hare. I considered the following discharge prescriptions or medication management in the emergency department Medications were administered in the Emergency Department. See MAR. Independent interpretation of the following test(s) in the Emergency Department X-Ray: My interpretation is CXR images reviewed by me reveals pneumonia. Historians other than the Patient: Spouse/Significant Other: Patient's . Care significantly affected by the following chronic conditions: Diabetes, Hypertension. Counseling: I had a detailed discussion with the patient and/or guardian regarding the historical points, exam findings, and any diagnostic results supporting the discharge/admit diagnosis, lab results, radiology results, the need for further work-up and treatment in the hospital. Response to treatment: the patient's symptoms have mildly improved after treatment, and as a result, I will admit patient. 06/11 08:49 Order name: Blood Culture Adult (2) ms3 06/11 08:49 Order name: CBC with Diff; Complete Time: 13:25 ms3 06/11 08:49 Order name: CMP; Complete Time: 09:31 ms3 06/11 08:49 Order name: Lactate w/ 2H reflex if indic.; Complete Time: 09:31 ms3 06/11 08:49 Order name: Protime (+inr); Complete Time: 09:31 ms3 06/11 08:49 Order name: Ptt, Activated; Complete Time: 09:31 ms3 06/11 08:49 Order name: Urinalysis w/ reflexes; Complete Time: 13:25 ms3 06/11 09:12 Order name: Glucose, Ancillary Testing; Complete Time: 09:31 EDMS 06/11 09:55 Order name: Lactate w/ 2H reflex if indic.; Complete Time: 13:25 EDMS 06/11 09:55 Order name: Urinalysis w/ reflexes EDMS 06/11 09:55 Order name: Basic Metabolic Panel EDMS 06/11 09:55 Order name: Basic Metabolic Panel EDMS 06/11 09:55 Order name: Basic Metabolic Panel EDMS 06/11 09:55 Order name: Basic Metabolic Panel EDMS 06/11 09:55 Order name: Basic Metabolic Panel EDMS 06/11 09:55 Order name: Basic Metabolic Panel EDMS 06/11 09:55 Order name: CBC with Automated Diff EDMS 06/11 09:55 Order name: CBC with Automated Diff EDMS 06/11 09:55 Order name: CBC with Automated Diff EDMS 06/11 09:55 Order name: CBC with Automated Diff EDMS / 09:55 Order name: CBC with Automated Diff EDMS 03/ 09:55 Order name: CBC with Automated Diff EDMS 03/ 09:55 Order name: Magnesium EDMS 03/ 09:55 Order name: Magnesium EDMS 03/ 09:55 Order name: Magnesium EDMS / 09:55 Order name: Magnesium EDMS 06/11 09:55 Order name: Magnesium EDMS 06/11 09:55 Order name: Magnesium EDMS / 09:55 Order name: Sputum Culture EDMS 06/11 10:46 Order name: CBC Smear Scan; Complete Time: 13:25 EDMS 06/11 11:51 Order name: Glucose, Ancillary Testing; Complete Time: 13:25 EDMS 06/11 13:06 Order name: ABG Arterial Blood Gas; Complete Time: 13:25 EDMS 06/11 08:49 Order name: Chest Single View XRAY; Complete Time: 09:31 ms3 06/11 14:14 Order name: CT EDMS 06/11 08:49 Order name: EKG; Complete Time: 08:49 ms3 06/11 09:51 Order name: CONS Physician Consult EDMS 06/11 08:49 Order name: Accucheck; Complete Time: 09:00 ms3 06/11 08:49 Order name: Cardiac monitoring; Complete Time: 08:58 ms3 06/11 08:49 Order name: EKG - Nurse/Tech; Complete Time: 09:06 ms3 06/11 08:49 Order name: IV Saline Lock - Large Bore; Complete Time: 08:58 ms3 06/11 08:49 Order name: Labs collected and sent; Complete Time: 09:01 ms3 06/11 08:49 Order name: O2 Per Protocol; Complete Time: 08:58 ms3 06/11 08:49 Order name: O2 Sat Monitoring; Complete Time: 08:58 ms3 06/11 08:49 Order name: Vital Signs; Complete Time: 09:05 ms3 EC:38 Rate is 107 beats/min. Rhythm is regular. QRS [place] is Normal. NH interval is normal. ms3 QRS interval is normal. Clinical impression: Sinus tachycardia. Interpreted by me. Reviewed by me. Administered Medications: 09:13 Drug: NS 0.9% IV 1000 ml IV at 1000 ml once Route: IV; Rate: 1000 ml; Site: left kc6 antecubital; 10:13 Follow up: Response: No adverse reaction; IV Status: Completed infusion; IV Intake: kc6 1000ml 09:41 Drug: Rocephin IV 1 grams IV at calculated rate once; Given slow IV push per pharmacy ko1 instructions Route: IV; Rate: calculated rate; Site: left antecubital; 11:30 Follow up: Response: No adverse reaction; IV Status: Completed infusion kc6 09:42 Drug: AZITHromycin IVPB 500 mg IVPB once over 1 hrs; (mix in 250 mL NS) Route: IVPB; ko1 Infused Over: 1 hrs; Site: left antecubital; 11:30 Follow up: Response: No adverse reaction; IV Status: Completed infusion; IV Intake: kc6 250ml 10:34 Drug: NS 0.9% IV (30 ml/kg) 30 ml/kg IV at bolus once; Sepsis Protocol Route: IV; Rate: kc6 bolus; Site: left antecubital; 11:30 Follow up: Response: No adverse reaction; IV Status: Completed infusion; IV Intake: kc6 2000ml Disposition: 10:38 Critical Care:. ms3 Disposition Summary: 06/12/23 09:40 Hospitalization Ordered Notes: Hospitalization Status: Inpatient Admission ms3 Provider: Ewa Hare ms3 Condition: Stable ms3 Problem: new ms3 Symptoms: are unchanged ms3 Bed/Room Type: Standard ms3 Location: Intensive Care Unit(06/12/23 14:43) bd Room Assignment: 4-(06/12/23 14:43) bd Diagnosis - Pneumonia, unspecified organism ms3 - Respiratory failure, unspecified with hypoxia ms3 - Severe sepsis with septic shock ms3 Forms: - Medication Reconciliation Form ms3 - SBAR form ms3 - Leadership Thank You Letter ms3 Critical care time excluding procedures: 10:38 Critical care time: Bedside Care: 30 minutes, Consultation: 5 minutes, Family ms3 Intervention: 5 minutes. Total time: 40 minutes Signatures: Dispatcher [employer] Devi Mullins Brian RN RN Satinder Carranza DO DO ms3 Lala Dodson RN RN kc6 Doris Cerda RN RN kb3 Mady Cole RN RN ko1 Corrections: (The following items were deleted from the chart) 10:38 09:40 Sepsis, unspecified organism - without end organ dysfunction ms3 ms3 11:39 09:40 Telemetry/MedSurg (Inpatient) ms3 kb3 11:39 09:40 ms3 kb3 14:43 11:39 [facility] ER HOLD kb3 bd 14:43 11:39 ERHOLD- kb3 bd
[2023-06-12] MEDS ORDERED: ALBUTEROL 2.5 MG/3 ML NEB SOL NEB PRN ×2 (09:51→15:37)
[2023-06-12] MEDS ORDERED: ONDANSETRON 4 MG/2 ML VIAL IV PRN (09:51)
--- NOTE | 2023-06-12 09:51 | P.HP ---
Certification for Inpatient Patient admitted to: Inpatient Practitioner: I am a practitioner with admitting privileges, knowledge of patient current condition, hospital course, and medical plan of care. Services: Services provided to patient in accordance with Admission requirements found in Title 42 Section 412.3 of the Code of Federal Regulations Patient History Date of Service: 06/12/23 Reason for admission: Shortness of breath History of Present Illness: 63-year-old female shortness of breath with past medical history of hypertension, diabetes, arthritis, presents to the emergency room with shortness of breath. at bedside is primary historian reports patient was seen in the emergency room over the weekend and was treated for pneumonia. She was discharged home on Levaquin 1 daily for 7 days, and albuterol inhaler, reports patient has been hypoxic with O2 sat in the 70s since discharge home from the ER. He reports shortness of breath is progressively getting worse, shortness of breath is worse with exertion, reports associated nonproductive cough, reports associated fever, generalized weakness since diagnosis with pneumonia. Reports history of pneumonia diagnosed several years back, no reported home O2 use, no reported history of smoking, reports secondhand smoke due to spouse tobacco use. No reported chest pain, edema, dizziness, plan to admit to ICU on nor epi for sepsis shock with associated hypotension, acute hypoxic respiratory failure secondary to pneumonia, vital signs BP 79 / 55; Pulse 121; Resp 24; Temp 96.6; Pulse Ox 75% on R/A; treated with 1 L of normal saline, azithromycin and Rocephin given in the emergency room. Laboratory evaluation leukocytosis 17.0, left shift 14.8, acute on chronic kidney injury BUN 21 creatinine 1.16, chest x-ray IMPRESSION: Progressive patchy airspace opacities particularly on the left, with possible small left effusion. Findings suggest pneumonia versus worsening pulmonary edema. Allergies Penicillins Allergy (Verified 12/28/20 23:54) Itching/Hives/Rash Home Medications: Esomeprazole Mag Trihydrate [Nexium] 40 mg PO DAILY 12/29/20 Gabapentin 600 mg PO TID 12/29/20 Leflunomide 20 mg PO DAILY 12/29/20 Sertraline [Zoloft*] 1.5 tab PO DAILY 12/29/20 Tramadol HCl [Ultram] 50 mg PO TID PRN 12/29/20 lisinopriL [Lisinopril] 20 mg PO DAILY 12/29/20 Albuterol Sulfate [Albuterol Sulfate 0.083% Neb Soln] 2.5 mg NEB Q6HP PRN #60 amp 12/30/20 Benzonatate [Tessalon Perle*] 100 mg PO TID PRN #30 cap 12/30/20 Ipratropium Neb [Atrovent*] 0.5 mg NEB Q6HP PRN #60 amp 12/30/20 Levofloxacin [Levaquin] 500 mg PO DAILY #7 tablet 12/30/20 Nebulizer Accessories [Aeroneb Go] 1 each MC DAILY #1 each 12/30/20 Nebulizer [Aeroneb Go Nebulizer] 1 each MC DAILY #1 each 12/30/20 predniSONE [Deltasone] 20 mg PO BID #11 tab 12/30/20 - Past Medical/Surgical History -: HTN -: arthritis -: depression anxiety -: scoliosis -: Pneumonia -: 2 knee replacements -: venu - Social History Alcohol use: No CD- Drugs: No Caffeine use: Yes Review of Systems per HPI Physical Examination - Physical Exam General: Alert, Mild distress HEENT: Atraumatic, Normocephalic Neck: Supple, 2+ carotid pulse no bruit Respiratory: Diminished, Expiratory wheezes, Inspiratory wheezes Cardiovascular: Normal pulses, Normal S1 S2 Gastrointestinal: Normal bowel sounds, Soft and benign Musculoskeletal: No clubbing, No swelling Integumentary: No breakdown, No significant lesion Neurological: Normal speech, Other (Generalized weakness) - Studies Laboratory Data (last 24 hrs) 06/12/23 06/12/23 06/12/23 09:00 09:00 09:00 WBC 17.00 H Hgb 12.6 Hct 38.2 Plt Count 309 PT 14.3 H INR 1.31 APTT 29.9 Sodium 137 Potassium 3.9 BUN 21 H Creatinine 1.16 H Glucose 120 H Total Bilirubin 1.5 H AST 76 H ALT 53 Alkaline Phosphatase 114 Assessment and Plan - Plan Assessment plan Admit to ICU for septic shock secondary to pneumonia Acute hypoxic respiratory failure secondary to pneumonia Failed outpatient treatment with p.o. antibiotics for pneumonia patient was seen in the emergency room over the weekend and was treated for pneumonia. She was discharged home on Levaquin 1 daily for 7 days, and albuterol inhaler, reports patient has been hypoxic with O2 sat in the 70s since discharge home from the ER. Pulmonary consult, admit to ICU on nor epi for sepsis shock with associated hypotension, acute hypoxic respiratory failure secondary to pneumonia, vital signs BP 79 / 55; Pulse 121; Resp 24; Temp 96.6; Pulse Ox 75% on R/A O2 2 L keep sats greater than 90%, IV antibiotics, nebs, steroids, PICC line placement for norepinephrine, for blood pressure keep MAP of 65 Chest x-ray IMPRESSION: Progressive patchy airspace opacities particularly on the left, with possible small left effusion. Findings suggest pneumonia versus worsening pulmonary edema. Echocardiogram chest x-ray IMPRESSION: Progressive patchy airspace opacities particularly on the left, with possible small left effusion. Findings suggest pneumonia versus worsening pulmonary edema. Evaluate for pulmonary edema, previously history of elevated BNP leukocytosis 17.0, left shift 14.8, acute on chronic kidney injury unknown baseline IV fluids, trend kidney function BUN 21 creatinine 1.16, Essential hypertension Resume home antihypertensive Type II diabetes Sliding scale insulin, Accu-Chek arthritis Resume appropriate home meds Full code DVT heparin Diet diabetic Disposition Home with independent prior to admission Discharge Plan: Home - Advance Directives Does patient have a Living Will: No Does patient have a Durable POA for Healthcare: No - Code Status/Comfort Care Code Status: Full Code Critical Care: Yes Time Spent Managing Pts Care (In Minutes): 65
[2023-06-12] MEDS: NA CHLORIDE 0.9% 1,000 ML IV SCH (10:00)
[2023-06-12] MEDS: METHYLPREDNISOLONE 125 MG INJ IV SCH (10:30)
[2023-06-12] MEDS: DOXYCYCLINE 100 MG in NA CHLORIDE 0.9% 100 ML IVPB SCH (10:30)
[2023-06-12 10:45] LABS: Anisocytosis SLIGHT; Blood Morphology Comment NOTED (NOT SEEN); Macrocytosis 1+; Platelet Estimate ADEQ; White Blood Cell Scan OK (OK)
[2023-06-12 10:45] LABS: Specific Gravity 1.027 (1.005-1.030); Sqamous Epithelial <5 /HPF (None Seen); Transitional Epithelial <5 /HPF (None Seen); Urine Bacteria <20 /HPF (<20); Urine Bilirubin 1+ (Negative); Urine Blood Negative (Negative); Urine Clarity Extremely Turbid (Clear); Urine Color Yellow (Yellow); Urine Culture Reflex Order NOT NEEDED; Urine Glucose TRACE (Negative); Urine Ketones TRACE (Negative); Urine Microscopic Reflex YN ORDER UMIC; Urine Mucus 2+ /HPF (None Seen); Urine Nitrite NEGATIVE (Negative); Urine Protein 2+ (Negative); Urine RBC <5 /HPF (None Seen); Urine Urobilinogen 1+ (Normal); Urine pH 5.5 (5.0-7.0)
[2023-06-12] MEDS: LACTOBACILLUS/ACIDOPHILUS TAB PO SCH (11:00)
[2023-06-12] MEDS: CEFEPIME 2 GM in NA CHLORIDE 0.9% 100 ML IV SCH (11:00)
[2023-06-12] MEDS ORDERED: NOREPINEPHRINE 4 MG in D5W 250 ML IV SCH (11:00)
[2023-06-12] MEDS: INSULIN REGULAR (HUMAN) 100 UNIT/ML SQ SCH (11:30)
[2023-06-12] MEDS ORDERED: METHYLPREDNISOLONE 40 MG INJ ONE ×3 (11:45→16:25)
[2023-06-12] MEDS ORDERED: DOXYCYCLINE HYCLATE 100MG INJ ONE (11:45)
[2023-06-12] MEDS ORDERED: CEFEPIME 2 GM VIAL ONE ×2 (11:46→20:07)
[2023-06-12] MEDS ORDERED: NA CHLORIDE 0.9% 200 ML ONE (11:46)
--- NOTE | 2023-06-12 12:16 | P.CNS ---
Date of Consult: 06/12/23 Reason for Consult: Respiratory failure severe pneumonia Chief Complaint: Shortness of breath History of Present Illness: Patient is 63 years of age has been sick for over a week presents to the emergency room with respiratory failure she came here to the emergency room and on Saturday and was discharged home on levofloxacin she continued to get worse progressive dyspnea associated with some fever weakness ended up back in the emergency room and severe sepsis and respiratory failure currently she is on a nonrebreather alert and responsive Allergies Penicillins Allergy (Verified 12/28/20 23:54) Itching/Hives/Rash Home Medications: Esomeprazole Mag Trihydrate [Nexium] 40 mg PO DAILY 12/29/20 Gabapentin 600 mg PO TID 12/29/20 Leflunomide 20 mg PO DAILY 12/29/20 Sertraline [Zoloft*] 1.5 tab PO DAILY 12/29/20 Tramadol HCl [Ultram] 50 mg PO TID PRN 12/29/20 lisinopriL [Lisinopril] 20 mg PO DAILY 12/29/20 Albuterol Sulfate [Albuterol Sulfate 0.083% Neb Soln] 2.5 mg NEB Q6HP PRN #60 amp 12/30/20 Benzonatate [Tessalon Perle*] 100 mg PO TID PRN #30 cap 12/30/20 Ipratropium Neb [Atrovent*] 0.5 mg NEB Q6HP PRN #60 amp 12/30/20 Levofloxacin [Levaquin] 500 mg PO DAILY #7 tablet 12/30/20 Nebulizer Accessories [Aeroneb Go] 1 each MC DAILY #1 each 12/30/20 Nebulizer [Aeroneb Go Nebulizer] 1 each MC DAILY #1 each 12/30/20 predniSONE [Deltasone] 20 mg PO BID #11 tab 12/30/20 - Past Medical/Surgical History -: HTN -: arthritis -: depression anxiety -: scoliosis -: Pneumonia -: 2 knee replacements -: venu - Social History Alcohol use: No CD- Drugs: No Caffeine use: Yes Review of Systems Unremarkable General: Fever, Weakness Respiratory: Cough, Shortness of Breath Physical Examination General: Alert, Oriented x3, Mild distress Respiratory: Crackles/rales (Crackles bilaterally) Cardiovascular: No edema, Regular rate/rhythm, Normal S1 S2 Gastrointestinal: Normal bowel sounds, Soft and benign Musculoskeletal: No clubbing, No swelling, No contractures Integumentary: No rashes, No breakdown Laboratory Data (last 24 hrs) 06/12/23 06/12/23 06/12/23 09:00 09:00 09:00 WBC 17.00 H Hgb 12.6 Hct 38.2 Plt Count 309 PT 14.3 H INR 1.31 APTT 29.9 Sodium 137 Potassium 3.9 BUN 21 H Creatinine 1.16 H Glucose 120 H Total Bilirubin 1.5 H AST 76 H ALT 53 Alkaline Phosphatase 114 - Problems (1) Respiratory failure Current Visit: Yes Status: Acute Plan: Patient is 63 years of age admitted with severe bilateral pneumonia respiratory failure patient has renal insufficiency normal LFTs multiple organ failure chest x-ray shows diffuse bilateral infiltrate reduced dose of steroids continue with antibiotics. Boluses as needed labs chest x-rays all reviewed patient on BiPAP continue with fluids blood pressure support patient was in septic shock on admission Qualifiers: Chronicity: acute
[2023-06-12] MEDS: FUROSEMIDE 40 MG/4 ML VIAL IV ONE (12:36)
[2023-06-12] MEDS ORDERED: FUROSEMIDE 40 MG/4 ML VIAL ONE (12:52)
[2023-06-12] MEDS: VANCOMYCIN 2.25 GM in NA CHLORIDE 0.9% 500 ML IVPB ONE (13:00)
[2023-06-12] MEDS ORDERED: VANCOMYCIN 1 GM in NA CHLORIDE 0.9% 250 ML IVPB SCH (13:00)
[2023-06-12 13:03] LABS: Arterial Blood Carboxyhemoglob 1.2 % (0-1.5); Blood Gas Oxyhemoglobin 85.9 % (94-97); Blood Gas THB 11.2 g/dl (12-18); Blood O2 Saturation 89.2 % (92-98.5)
[2023-06-12] MEDS: MIDODRINE HCL 5 MG TABLET PO SCH (14:00)
--- NOTE | 2023-06-12 14:13 | RAD REPORT ---
EXAM DESCRIPTION: CT - Chest For Pe Angio - 06/12/2023 1:43 pm CLINICAL HISTORY: sob COMPARISON: 2020 TECHNIQUE: Dynamically enhanced axial 3 mm thick images of the chest were obtained during administra tion of 100 mL Isovue 370 IV contrast. Coronal and oblique reconstruction images were generated and r eviewed. Exam utilizes a protocol for optimal evaluation of pulmonary arterial tree. Maximum intensity projections 3D imaging was utilized All CT scans are performed using dose optimization technique as appropriate and may include automated exposure control or mA/KV adjustment according to patient size. FINDINGS: A pulmonary embolus is not seen. A thoracic aortic aneurysm is not noted. Small bilateral pleural effusions. A pericardial effusion is not seen. Moderate to marked bilateral patchy alveolar lung opacities IMPRESSION: Negative for a pulmonary embolism. Moderate to marked bilateral patchy alveolar lung opacities probably pneumonia
[2023-06-12] MEDS ORDERED: MIDODRINE HCL 5 MG TABLET ONE (14:34)
[2023-06-12] MEDS ORDERED: GUAIFENESIN/CODEINE 5ML UCUP ONE ×2 (15:28→20:32)
[2023-06-12] MEDS: GUAIFENESIN/CODEINE 5ML UCUP PO ONE (15:29)
--- NOTE | 2023-06-12 16:21 | RAD REPORT ---
EXAM DESCRIPTION: RAD - Chest Single View - 06/12/2023 4:16 pm CLINICAL HISTORY: Device placement PICC line placement IMPRESSION: PICC line with its tip in the superior vena cava
[2023-06-12] MEDS ORDERED: HEPARIN 5000 UNIT/ML 1 ML VIAL ONE (16:25)
[2023-06-12] MEDS: METHYLPREDNISOLONE 40 MG INJ IV SCH (16:28)
[2023-06-12] MEDS: HEPARIN 5000 UNIT/ML 1 ML VIAL SQ SCH (16:28)
[2023-06-12 17:27] LABS: Blood Gas Oxyhemoglobin 86.8 % (94-97); Blood Gas THB 11.8 g/dl (12-18); Blood O2 Saturation 89.9 % (92-98.5)
[2023-06-12] MEDS ORDERED: NA CHLORIDE 0.9% 100 ML ONE (20:08)
[2023-06-12] MEDS: Mupirocin NASAL 2 APPL/1 GM TUBE NAS SCH (20:20)
[2023-06-12] MEDS: GUAIFENESIN/CODEINE 5ML UCUP PO PRN (20:33)
[2023-06-13] MEDS ORDERED: NA CHLORIDE 0.9% 0 ML ONE (00:35)
[2023-06-13 04:56] LABS: Arterial Blood Carboxyhemoglob 0.7 % (0-1.5); Blood Gas Oxyhemoglobin 90.3 % (94-97); Blood Gas THB 11.7 g/dl (12-18); Blood O2 Saturation 93.4 % (92-98.5)
[2023-06-13 05:09] LABS: Absolute Lymphocytes (CBC) 0.5 K/uL (0.7-4.9); Absolute Monocytes 0.3 K/uL (0.1-1.3); Absolute Neutrophil 9.9 K/uL (1.8-8.0); Basophils % 0.1 % (0-1.3); Hemoglobin 10.9 g/dL (12.0-15.0); Lymphocytes % 4.4 % (15.3-44.8); MCH 36.7 pg (27.0-35.0); MCV 108.1 fL (80-100); MPV 7.4 fL (7.6-11.3); Monocytes % 2.8 % (3.3-12.3); Platelets 298 thou/uL (152-406); RBC Red Blood Cell Count 2.96 M/uL (3.86-4.86); Red Cell Distribution Width 19.8 % (12.1-15.2)
[2023-06-13 05:11] LABS: Neutrophils % 92.7 % (41.7-73.7)
[2023-06-13 05:40] LABS: Anion Gap 8.6 mEq/L (5.0-15.0); Magnesium 1.9 mg/dL (1.6-2.4); Potassium 3.6 mEq/L (3.5-5.1)
[2023-06-13 05:59] LABS: Specific Gravity > 1.030 (1.005-1.030); Sqamous Epithelial None Seen /HPF (None Seen); Urine Bacteria None Seen /HPF (<20); Urine Bilirubin NEGATIVE (Negative); Urine Blood Negative (Negative); Urine Clarity Turbid (Clear); Urine Color Yellow (Yellow); Urine Culture Reflex Order REFLEXED; Urine Glucose NEGATIVE (Negative); Urine Ketones 1+ (Negative); Urine Microscopic Reflex YN ORDER UMIC; Urine Mucus Slight /HPF (None Seen); Urine Nitrite NEGATIVE (Negative); Urine Protein 1+ (Negative); Urine Urobilinogen Normal (Normal); Urine WBC 20-50 /HPF (<5)
--- NOTE | 2023-06-13 06:48 | ECHO ---
HEIGHT: 5 ft 8 in WEIGHT: 215 lb 0 oz DATE OF STUDY: 06/12/[address]: Ewa Hare MD 2-DIMENSIONAL: YES M.MODE: YES DOPPLER: YES COLOR FLOW: YES TDS: PORTABLE: YES DEFINITY: BUBBLE STUDY: DIAGNOSIS: CONGESTIVE HEART FAILURE CARDIAC HISTORY: CATHERIZATION: NO SURGERY: NO PROSTHETIC VALVE: NO PACEMAKER: NO MEASUREMENTS (cm) DIASTOLIC (NORMALS) SYSTOLIC (NORMALS) IVSd 0.8 (0.6-1.2) LA Diam 3.4 (1.9-4.0) LVEF 852% LVIDd 3.5 (3.5-5.7) LVIDs 2.6 (2.0-3.5) %FS 26% LVPWd 0.9 (0.6-1.2) Ao Diam 2.8 (2.0-3.7) 2 DIMENSIONAL ASSESSMENT: RIGHT ATRIUM: NORMAL LEFT ATRIUM: NORMAL RIGHT VENTRICLE: NORMAL LEFT VENTRICLE: NORMAL TRICUSPID VALVE: MILD TRICUSPID REGURGITATION MITRAL VALVE: NORMAL PULMONIC VALVE: NORMAL AORTIC VALVE: NORMAL PERICARDIAL EFFUSION: NONE AORTIC ROOT: NORMAL LEFT VENTRICULAR WALL MOTION: NORMAL DOPPLER/COLOR FLOW: NORMAL COMMENTS: 1. NORMAL LEFT VENTRICULAR SYSTOLIC FUNCTION, EJECTION FRACTION 55-60%, NORMAL DIASTOLIC FUNCTION 2. MILD TRICUSPID REGURGITATION, RIGHT VENTRICULAR SYSTOLIC PRESSURE 40-45 mmHg TECHNOLOGIST: LOTUS DOMINGUEZ
--- NOTE | 2023-06-13 07:24 | P.PN ---
Subjective Date of Service: 06/13/23 Chief Complaint: Shortness of breath Weaned to high flow oxygen 30%, O2 sat 93% alert and oriented x 3, [place] to bedside drain BiPAP overnight, reports breathing better, - Physical Exam General: Alert, Mild distress HEENT: Atraumatic, Normocephalic Neck: Supple, 2+ carotid pulse no bruit Respiratory: Diminished, Expiratory wheezes, Inspiratory wheezes Cardiovascular: Normal pulses, Normal S1 S2 Gastrointestinal: Normal bowel sounds, Soft and benign Musculoskeletal: No clubbing, No swelling Integumentary: No breakdown, No significant lesion Neurological: Normal speech, Other (Generalized weakness) Review of Systems For HPI Physical Examination - Vital Signs Temperature: 97 F Blood Pressure: 107/72 Pulse: 63 Respirations: 30 Pulse Ox (%): 97 - Studies Laboratory Data (last 24 hrs) 06/12/23 06/12/23 06/12/23 09:00 09:00 09:00 WBC 17.00 H Hgb 12.6 Hct 38.2 Plt Count 309 PT 14.3 H INR 1.31 APTT 29.9 Sodium 137 Potassium 3.9 BUN 21 H Creatinine 1.16 H Glucose 120 H Total Bilirubin 1.5 H AST 76 H ALT 53 Alkaline Phosphatase 114 Assessment And Plan - Plan Assessment plan Admit to ICU for septic shock secondary to pneumonia Acute hypoxic respiratory failure secondary to pneumonia Failed outpatient treatment with p.o. antibiotics for pneumonia improved patient was seen in the emergency room over the weekend and was treated for pneumonia. She was discharged home on Levaquin 1 daily for 7 days, and albuterol inhaler, reports patient has been hypoxic with O2 sat in the 70s since discharge home from the ER. Pulmonary consult, admit to ICU on nor epi for sepsis shock with associated hypotension, acute hypoxic respiratory failure secondary to pneumonia, vital signs BP 79 / 55; Pulse 121; Resp 24; Temp 96.6; Pulse Ox 75% on R/A O2 2 L keep sats greater than 90%, IV antibiotics, nebs, steroids, PICC line placement for norepinephrine, for blood pressure keep MAP of 65 Chest x-ray IMPRESSION: Progressive patchy airspace opacities particularly on the left, with possible small left effusion. Findings suggest pneumonia versus worsening pulmonary edema. Echocardiogram chest x-ray IMPRESSION: Progressive patchy airspace opacities particularly on the left, with possible small left effusion. Findings suggest pneumonia versus worsening pulmonary edema. Evaluate for pulmonary edema, previously history of elevated BNP leukocytosis 17.0, left shift 14.8, 3/7 High flow 30% sats 93% acute on chronic kidney injury unknown baseline IV fluids, trend kidney function BUN 21 creatinine 1.16, Essential hypertension Resume home antihypertensive Type II diabetes Sliding scale insulin, Accu-Chek arthritis Resume appropriate home meds Full code DVT heparin Diet diabetic Disposition Home with independent prior to admission Discharge Plan: Home - Code Status/Comfort Care Code Status: Full Code Critical Care: Yes Time Spent Managing PTS Care (In Minutes): 45
[2023-06-13] MEDS ORDERED: GUAIFENESIN/CODEINE 5ML UCUP ONE ×3 (08:31→18:45)
[2023-06-13] MEDS ORDERED: CEFEPIME 2 GM VIAL ONE (08:32)
[2023-06-13] MEDS ORDERED: HEPARIN 5000 UNIT/ML 1 ML VIAL ONE (08:32)
[2023-06-13] MEDS ORDERED: METHYLPREDNISOLONE 40 MG INJ ONE (08:32)
[2023-06-13] MEDS ORDERED: NA CHLORIDE 0.9% 100 ML ONE (08:32)
[2023-06-13] MEDS ORDERED: POTASSIUM 25 MEQ EFFERV TAB PO ONE (09:00)
[2023-06-13] MEDS: VANCOMYCIN 1.75 GM in NA CHLORIDE 0.9% 500 ML IVPB SCH (10:01)
[2023-06-13] MEDS: KCL 20 MEQ/100 mL IVPB 20 MEQ/100 ML BAG IV SCH (10:15)
[2023-06-13 10:49] LABS: INFLUENZA A NAA NEGATIVE (NEGATIVE); RESPIRATORY SYNCYTIAL VIR NAA NEGATIVE (NEGATIVE); SARS-COV-2 RT PCR NEGATIVE (NEGATIVE)
--- NOTE | 2023-06-13 11:42 | P.PN ---
Subjective Date of Service: 06/13/23 Chief Complaint: Bilateral pneumonia respiratory failure Subjective: Improving (Patient is improving doing better still requiring BiPAP alert responsive cooperative) Review of Systems General: Weakness Respiratory: Shortness of Breath Physical Examination - Vital Signs Temperature: 97 F Blood Pressure: 107/72 Pulse: 63 Respirations: 30 Pulse Ox (%): 97 - Physical Exam General: Alert, Oriented x3 Respiratory: Crackles/rales Cardiovascular: No edema, Regular rate/rhythm, Normal S1 S2 Assessment And Plan - Current Problems (Diagnosis) (1) Respiratory failure Current Visit: Yes Status: Acute Plan: Patient admitted with respiratory failure secondary to severe bilateral pneumonia will try Vapotherm alternating with BiPAP labs reviewed white count is normal oxygenation satisfactory on 60% FiO2 patient has a macrocytic anemia normal renal function chest x-ray ordered Qualifiers: Chronicity: acute
--- NOTE | 2023-06-13 14:18 | EKG ---
Test Date: 2023-06-12 Test Time: 09:06:43 Production Supv: [facility] MEASUREMENT RESULTS: Intervals: Rate: 107 PA: 144 QRSD: 62 QT: 320 QTc: 427 [place]: P: 19 PA: 144 QRS: 91 T: 7 INTERPRETIVE STATEMENTS: Sinus tachycardia Otherwise normal ECG Compared to ECG 06/07/2023 16:17:21 Sinus rhythm no longer present Electronically Signed On 06-13-23 14:13:51 INSURANCE SALES MANAGER by Martin Hinojosa
[2023-06-13] MEDS ORDERED: NA CHLORIDE 0.9% 1,000 ML ONE (18:38)
[2023-06-14] MEDS ORDERED: GUAIFENESIN/CODEINE 5ML UCUP ONE ×5 (00:36→20:15)
[2023-06-14] MEDS ORDERED: VANCOMYCIN 1.75 GM in NA CHLORIDE 0.9% 500 ML IVPB SCH (01:00)
[2023-06-14 05:04] LABS: Absolute Lymphocytes (CBC) 0.8 K/uL (0.7-4.9); Absolute Monocytes 0.8 K/uL (0.1-1.3); Absolute Neutrophil 14.1 K/uL (1.8-8.0); Basophils % 0.2 % (0-1.3); Hematocrit 34.2 % (36.0-45.0); Hemoglobin 11.2 g/dL (12.0-15.0); Lymphocytes % 4.9 % (15.3-44.8); MCH 35.3 pg (27.0-35.0); MCHC 32.9 g/dL (32.0-36.0); MCV 107.4 fL (80-100); MPV 7.1 fL (7.6-11.3); Monocytes % 4.8 % (3.3-12.3); Neutrophils % 90.1 % (41.7-73.7); Platelets 318 thou/uL (152-406); RBC Red Blood Cell Count 3.18 M/uL (3.86-4.86); Red Cell Distribution Width 20.4 % (12.1-15.2)
[2023-06-14 05:29] LABS: Anion Gap 7.8 mEq/L (5.0-15.0); Potassium 3.8 mEq/L (3.5-5.1)
[2023-06-14 05:30] LABS: Magnesium 2.4 mg/dL (1.6-2.4)
[2023-06-14] MEDS ORDERED: KCL 20 MEQ/100 mL IVPB 100 ML IV ONE (06:01)
[2023-06-14] MEDS: KCL 20 MEQ/100 mL IVPB 20 MEQ/100 ML BAG IV SCH (06:02)
--- NOTE | 2023-06-14 07:12 | P.PN ---
Subjective Date of Service: 06/15/23 Chief Complaint: Shortness of breath Weaned to high flow oxygen 30, 70%, O2 sat 97% alert and oriented x 3, Sotelo to bedside drain BiPAP overnight, reports breathing better, plan to DC Sotelo today - Physical Exam General: Alert, oriented x 3 HEENT: Atraumatic, Normocephalic Neck: Supple, 2+ carotid pulse no bruit Respiratory: Diminished, equal unlabored Cardiovascular: Normal pulses, Normal S1 S2 Gastrointestinal: Normal bowel sounds, Soft and benign Musculoskeletal: No clubbing, No swelling Integumentary: No breakdown, No significant lesion Neurological: Normal speech, Other (Generalized weakness) Review of Systems per HPI Physical Examination - Vital Signs Temperature: 97.5 F Blood Pressure: 129/78 Pulse: 68 Respirations: 28 Pulse Ox (%): 97 Assessment And Plan - Plan Assessment plan Admit to ICU for septic shock secondary to pneumonia Acute hypoxic respiratory failure secondary to pneumonia Failed outpatient treatment with p.o. antibiotics for pneumonia improved patient was seen in the emergency room over the weekend and was treated for pneumonia. She was discharged home on Levaquin 1 daily for 7 days, and albuterol inhaler, reports patient has been hypoxic with O2 sat in the 70s since discharge home from the ER. Pulmonary consult, admit to ICU on nor epi for sepsis shock with associated hypotension, acute hypoxic respiratory failure secondary to pneumonia, vital signs BP 79 / 55; Pulse 121; Resp 24; Temp 96.6; Pulse Ox 75% on R/A O2 2 L keep sats greater than 90%, IV antibiotics, nebs, steroids, PICC line placement for norepinephrine, for blood pressure keep MAP of 65 Chest x-ray IMPRESSION: Progressive patchy airspace opacities particularly on the left, with possible small left effusion. Findings suggest pneumonia versus worsening pulmonary edema. Echocardiogram chest x-ray IMPRESSION: Progressive patchy airspace opacities particularly on the left, with possible small left effusion. Findings suggest pneumonia versus worsening pulmonary edema. Evaluate for pulmonary edema, previously history of elevated BNP leukocytosis 17.0, left shift 14.8, 3/7 High flow 30% sats 93% acute on chronic kidney injury unknown baseline IV fluids, trend kidney function BUN 21 creatinine 1.16, Essential hypertension Resume home antihypertensive Type II diabetes Sliding scale insulin, Accu-Chek arthritis Resume appropriate home meds Full code DVT heparin Diet diabetic Disposition Home with independent prior to admission Discharge Plan: Home - Code Status/Comfort Care Code Status: Full Code Critical Care: No Time Spent Managing PTS Care (In Minutes): 35
--- NOTE | 2023-06-14 07:17 | RAD REPORT ---
EXAM DESCRIPTION: RAD - Chest Single View - 06/14/2023 6:25 am CLINICAL HISTORY: Pneumonia Chest pain. COMPARISON: Chest Single View dated 06/12/2023; Chest Single View dated 06/12/2023; Chest Single View da vianney 06/07/2023; Chest Single View dated 12/31/2020 FINDINGS: Portable technique limits examination quality. Extensive bilateral pulmonary opacities are again seen, appearing slightly worse relative to 06/12/19 24. The heart is upper limit normal in size. No displaced fractures.Right-sided venous catheter its t ip in the SVC. IMPRESSION: Mild worsening in lung aeration seen since comparative study.
[2023-06-14 07:29] LABS: Anisocytosis 1+; Blood Morphology Comment NOTED (NOT SEEN); Differential Total Cells Count 100; Lymphocytes 2 % (15-42); Macrocytosis 1+; Monocytes 4 % (0-10); Platelet Estimate ADEQ; Segmented Neutrophils 94 % (40-80)
[2023-06-14] MEDS ORDERED: TRAMADOL HCL 50 MG TAB PO PRN (08:33)
--- NOTE | 2023-06-14 08:35 | P.PN ---
Subjective Date of Service: 06/14/23 Chief Complaint: Respiratory failure Condition is stable patient complaining of cough desaturation with mild exertion was alert responsive Review of Systems General: Weakness Respiratory: Cough, Shortness of Breath Physical Examination - Vital Signs Temperature: 97.5 F Blood Pressure: 129/78 Pulse: 68 Respirations: 28 Pulse Ox (%): 97 - Physical Exam General: Alert, Mild distress Respiratory: Crackles/rales, Expiratory wheezes Cardiovascular: No edema, Regular rate/rhythm, Normal S1 S2 Gastrointestinal: Normal bowel sounds, Soft and benign Assessment And Plan - Current Problems (Diagnosis) (1) Respiratory failure Current Visit: Yes Status: Acute Plan: Patient has diffuse bilateral changes most likely she has a ARDS from a superimposed viral infection cultures are all negative labs reviewed chest x-ray reviewed mildly hyponatremic resume some of her home medications next as needed changed to Lovenox reduced dose of Solu-Medrol white count is mildly elevated secondary to steroids add low-dose spironolactone and promethazine with codeine for cough suppression DC vancomycin changed to p.o. doxycycline Qualifiers: Chronicity: acute
[2023-06-14] MEDS: METHYLPREDNISOLONE 40 MG INJ IV SCH (08:55)
[2023-06-14] MEDS: ENOXAPARIN 40 MG/0.4 ML SQ SCH (08:55)
[2023-06-14] MEDS ORDERED: TRAMADOL HCL 50 MG TAB PO SCH (09:00)
[2023-06-14] MEDS ORDERED: SERTRALINE HCL 50 MG TAB PO SCH (09:00)
[2023-06-14] MEDS ORDERED: GABAPENTIN 300 MG CAP ONE ×3 (09:03→20:57)
[2023-06-14] MEDS ORDERED: DOXYCYCLINE 100 MG CAP PO ONE ×2 (09:03→20:02)
[2023-06-14] MEDS: SPIRONOLACTONE 25 MG TABLET PO SCH (09:05)
[2023-06-14] MEDS: DOXYCYCLINE 100 MG CAP PO SCH (09:06)
[2023-06-14] MEDS: SERTRALINE HCL 100 MG TAB PO SCH (09:06)
[2023-06-14] MEDS: GABAPENTIN 300 MG CAP PO SCH (09:06)
[2023-06-14] MEDS ORDERED: PROMETH/COD 6.25/10MG SYRUP 5ML ONE (13:45)
[2023-06-14] MEDS ORDERED: PROMETHAZINE-DM 5 ML OSYR ONE (13:48)
[2023-06-14] MEDS: PROMETHAZINE-DM 5 ML OSYR PO PRN (13:49)
[2023-06-14] MEDS ORDERED: CEFEPIME 2 GM VIAL ONE (20:02)
[2023-06-14] MEDS ORDERED: NA CHLORIDE 0.9% 100 ML ONE (20:03)
[2023-06-15 05:38] LABS: Absolute Lymphocytes (CBC) 0.6 K/uL (0.7-4.9); Absolute Monocytes 0.7 K/uL (0.1-1.3); Absolute Neutrophil 12.9 K/uL (1.8-8.0); Basophils % 0.1 % (0-1.3); Hematocrit 36.9 % (36.0-45.0); MCH 35.2 pg (27.0-35.0); MCHC 32.6 g/dL (32.0-36.0); MCV 107.9 fL (80-100); MPV 7.2 fL (7.6-11.3); Neutrophils % 90.9 % (41.7-73.7); Nucleated Red Blood Cells % 0.1 % (0-0); Platelets 352 thou/uL (152-406); RBC Red Blood Cell Count 3.42 M/uL (3.86-4.86); Red Cell Distribution Width 19.9 % (12.1-15.2)
[2023-06-15 05:58] LABS: Anion Gap 8.1 mEq/L (5.0-15.0); Magnesium 2.6 mg/dL (1.6-2.4); Potassium 4.1 mEq/L (3.5-5.1)
--- NOTE | 2023-06-15 07:11 | RAD REPORT ---
EXAM DESCRIPTION: RAD - Chest Single View - 06/15/2023 6:49 am CLINICAL HISTORY: Pneumonia COMPARISON: Chest Single View dated 06/14/2023; Chest Single View dated 06/12/2023; Chest Single View da vianney 06/12/2023; Chest Single View dated 06/07/2023; Chest For Pe Angio dated 06/12/2023 FINDINGS: Lines: Right subclavian approach PICC with tip overlying the SVC. Lungs: Widespread interstitial and airspace disease. Though the airspace disease appears improved on this radiograph compared with yesterday, this is probably related to radiographic technique. Pleural: No significant pleural effusions or pneumothorax. Cardiac: Cardiomegaly. Mediastinum: Within normal limits. Bones: No acute fractures. Other: None IMPRESSION: Taking into account some differences radiographic technique, overall similar bilateral a irspace disease likely reflecting multifocal pneumonia.
[2023-06-15] MEDS ORDERED: DOXYCYCLINE 100 MG CAP PO ONE ×2 (08:31→21:02)
[2023-06-15] MEDS ORDERED: GABAPENTIN 300 MG CAP ONE ×3 (08:31→21:02)
[2023-06-15] MEDS ORDERED: CEFEPIME 2 GM VIAL ONE (08:32)
[2023-06-15] MEDS ORDERED: NA CHLORIDE 0.9% 100 ML ONE (08:32)
[2023-06-15] MEDS ORDERED: GUAIFENESIN/CODEINE 5ML UCUP ONE ×2 (08:39→21:08)
--- NOTE | 2023-06-15 09:42 | P.PN ---
Subjective Date of Service: 06/15/23 (Hospitalist) Chief Complaint: ARDS Patient has ARDS presumed viral in origin is improving oxygen requirements are declining cough is improved still has significant desaturation on mild exertion Review of Systems 10-point ROS is otherwise unremarkable General: Weakness Respiratory: Cough, Shortness of Breath Physical Examination - Vital Signs Temperature: 97.5 F Blood Pressure: 127/85 Pulse: 53 Respirations: 28 Pulse Ox (%): 93 - Physical Exam General: Alert, Oriented x3, Moderate distress Respiratory: Crackles/rales, Expiratory wheezes Cardiovascular: No edema, Regular rate/rhythm, Normal S1 S2 Assessment And Plan - Current Problems (Diagnosis) (1) Respiratory failure Current Visit: Yes Status: Acute Plan: Patient has ARDS changed to p.o. dexamethasone continue with IV Lasix daily continue with spironolactone and is to p.o. levofloxacin DC IV cefepime cultures all negative echocardiogram is grossly normal normal left ventricular ejection fraction mild pulmonary hypertension white count is declining Xarelto for DVT prophylaxis continue with Vapotherm needing with BiPAP chest x-ray reviewed still has diffuse bilateral changes Qualifiers: Chronicity: acute
[2023-06-15] MEDS: levoFLOXacin 250 MG TAB PO SCH (10:21)
[2023-06-15] MEDS: FUROSEMIDE 20 MG/ 2ML VIAL IV SCH (10:21)
[2023-06-15] MEDS: RIVAROXABAN 10 MG TABLET PO SCH (17:39)
[2023-06-15] MEDS: dexAMETHasone 4 MG TAB PO SCH (21:04)
[2023-06-15] MEDS ORDERED: INSULIN REGULAR (HUMAN) 100 UNIT/ML ONE (21:08)
[2023-06-16 04:58] LABS: Absolute Lymphocytes (CBC) 0.8 K/uL (0.7-4.9); Absolute Monocytes 0.8 K/uL (0.1-1.3); Absolute Neutrophil 8.2 K/uL (1.8-8.0); Hematocrit 35.4 % (36.0-45.0); Hemoglobin 11.8 g/dL (12.0-15.0); Lymphocytes % 7.8 % (15.3-44.8); MCH 35.6 pg (27.0-35.0); MCHC 33.3 g/dL (32.0-36.0); MCV 107.2 fL (80-100); Monocytes % 8.6 % (3.3-12.3); Neutrophils % 83.6 % (41.7-73.7); Nucleated Red Blood Cells % 0.1 % (0-0); Platelets 273 thou/uL (152-406); Red Cell Distribution Width 19.7 % (12.1-15.2)
[2023-06-16 05:34] LABS: Anion Gap 7.1 mEq/L (5.0-15.0); Magnesium 2.3 mg/dL (1.6-2.4); Potassium 4.1 mEq/L (3.5-5.1)
[2023-06-16] MEDS ORDERED: GABAPENTIN 300 MG CAP ONE ×3 (09:02→19:58)
[2023-06-16] MEDS ORDERED: GUAIFENESIN/CODEINE 5ML UCUP ONE ×2 (09:55→19:58)
--- NOTE | 2023-06-16 09:55 | RAD REPORT ---
EXAM DESCRIPTION: [facility] Single View06/16/2023 5:25 am CLINICAL HISTORY: Chest pain COMPARISON: June 15, 2023 FINDINGS: No significant change in the bilateral pulmonary opacities and cardiomegaly. PICC line manjeet ce IMPRESSION: No significant change since prior exam
--- NOTE | 2023-06-16 10:01 | P.PN ---
Subjective Date of Service: 06/16/23 Chief Complaint: ARDS Patient is improving oxygen requirements are declining still has desaturation on minimal exertion planing of GERD coughing has improved Review of Systems General: Weakness Respiratory: Cough, Shortness of Breath Physical Examination - Vital Signs Temperature: 97.8 F Blood Pressure: 142/78 Pulse: 63 Respirations: 20 Pulse Ox (%): 95 - Physical Exam General: Alert, In no apparent distress, Mild distress Cardiovascular: No edema, Regular rate/rhythm, Normal S1 S2 Gastrointestinal: Normal bowel sounds, Soft and benign Assessment And Plan - Current Problems (Diagnosis) (1) Respiratory failure Current Visit: Yes Status: Acute Plan: Patient admitted with ARDS clinically improving coughing is improved complaining of heartburn will start on pantoprazole DC doxycycline chest x-ray shows no progression perhaps an improvement labs chemistries reviewed white count has declined continue with low-dose dexamethasone vital signs stable currently patient is on high flow 30% Qualifiers: Chronicity: acute
[2023-06-16] MEDS: PANTOPRAZOLE 40MG TABLET PO SCH (10:49)
[2023-06-17 05:14] LABS: Absolute Lymphocytes (CBC) 0.8 K/uL (0.7-4.9); Absolute Monocytes 0.8 K/uL (0.1-1.3); Absolute Neutrophil 7.9 K/uL (1.8-8.0); Basophils % 0.2 % (0-1.3); Eosinophils % 0.1 % (0-4.4); Hematocrit 38.2 % (36.0-45.0); Hemoglobin 12.6 g/dL (12.0-15.0); Lymphocytes % 8.6 % (15.3-44.8); MCH 35.4 pg (27.0-35.0); MPV 7.2 fL (7.6-11.3); Monocytes % 8.6 % (3.3-12.3); Neutrophils % 82.5 % (41.7-73.7); Platelets 269 thou/uL (152-406); RBC Red Blood Cell Count 3.56 M/uL (3.86-4.86); Red Cell Distribution Width 19.7 % (12.1-15.2)
[2023-06-17 05:16] LABS: MCV 107.2 fL (80-100)
[2023-06-17 05:45] LABS: Anion Gap 7.4 mEq/L (5.0-15.0); Magnesium 2.2 mg/dL (1.6-2.4); Potassium 4.4 mEq/L (3.5-5.1)
[2023-06-17] MEDS ORDERED: GUAIFENESIN/CODEINE 5ML UCUP ONE ×3 (08:12→21:09)
[2023-06-17] MEDS ORDERED: GABAPENTIN 300 MG CAP ONE ×3 (08:19→19:42)
[2023-06-17] MEDS ORDERED: levoFLOXacin 750 MG TAB ONE (08:19)
[2023-06-17] MEDS: levoFLOXacin 750 MG TAB PO SCH (08:20)
--- NOTE | 2023-06-17 11:48 | P.PN ---
Subjective Date of Service: 06/17/23 Chief Complaint: ARDS Patient is doing better clinically improving sitting up in a chair alert responsive talking hypoxic Review of Systems General: Weakness Respiratory: Shortness of Breath Physical Examination - Vital Signs Temperature: 97.3 F Blood Pressure: 102/65 Pulse: 60 Respirations: 23 Pulse Ox (%): 92 - Physical Exam General: Alert, In no apparent distress, Mild distress Respiratory: Clear to auscultation bilaterally Cardiovascular: No edema, Regular rate/rhythm, Normal S1 S2 - Studies Microbiology Data (last 24 hrs): 06/12/23 09:25 Blood - Blood Aerobic Blood Culture - Final No growth in 5 days. 06/12/23 09:25 Blood - Blood Anaerobic Blood Culture - Final No growth in 5 days. 06/12/23 08:55 Blood - Blood Aerobic Blood Culture - Final No growth in 5 days. 06/12/23 08:55 Blood - Blood Anaerobic Blood Culture - Final No growth in 5 days. Assessment And Plan - Current Problems (Diagnosis) (1) Respiratory failure Current Visit: Yes Status: Acute Plan: Patient is clinically improved labs reviewed white count is normal patient is doing better chest x-ray ordered an FiO2 of 60% stable for transfer to the floor use dose of dexamethasone to 2 mg twice a day Qualifiers: Chronicity: acute
[2023-06-17] MEDS: dexAMETHasone 4 MG TAB PO SCH (20:25)
[2023-06-18 04:43] LABS: Absolute Monocytes 1.2 K/uL (0.1-1.3); Absolute Neutrophil 10.7 K/uL (1.8-8.0); Basophils % 0.4 % (0-1.3); Eosinophils % 0.3 % (0-4.4); Hematocrit 38.8 % (36.0-45.0); Hemoglobin 12.7 g/dL (12.0-15.0); Lymphocytes % 7.5 % (15.3-44.8); MCH 35.1 pg (27.0-35.0); MCHC 32.8 g/dL (32.0-36.0); MPV 7.1 fL (7.6-11.3); Monocytes % 9.6 % (3.3-12.3); Neutrophils % 82.2 % (41.7-73.7); Nucleated Red Blood Cells % 0.1 % (0-0); Platelets 294 thou/uL (152-406); RBC Red Blood Cell Count 3.63 M/uL (3.86-4.86); Red Cell Distribution Width 19.3 % (12.1-15.2)
[2023-06-18 04:46] LABS: MCV 107.1 fL (80-100)
[2023-06-18 05:00] LABS: Anion Gap 8.7 mEq/L (5.0-15.0); Potassium 4.7 mEq/L (3.5-5.1)
--- NOTE | 2023-06-18 07:57 | RAD REPORT ---
EXAM DESCRIPTION: [facility] Single View06/18/2023 5:06 am CLINICAL HISTORY: Shortness of breath COMPARISON: June 17, 2023 FINDINGS: Minimal improvement in the bilateral pulmonary opacities Heart is enlarged. PICC line in place IMPRESSION: Minimal improvement in the bilateral pulmonary opacities
[2023-06-18] MEDS ORDERED: Levofloxacin 750mg IV 0 MG/0 ML BAG IV ONE (08:02)
[2023-06-18] MEDS ORDERED: FUROSEMIDE 20 MG/ 2ML VIAL ONE (08:02)
[2023-06-18] MEDS ORDERED: GABAPENTIN 300 MG CAP ONE ×3 (08:02→21:10)
[2023-06-18] MEDS ORDERED: levoFLOXacin 750 MG TAB ONE (08:26)
[2023-06-18] MEDS ORDERED: FUROSEMIDE 20 MG TABLET ONE (08:26)
[2023-06-18] MEDS: FUROSEMIDE 20 MG TABLET PO SCH (08:28)
[2023-06-18] MEDS ORDERED: PROMETHAZINE-DM 5 ML OSYR ONE ×2 (08:32→16:34)
--- NOTE | 2023-06-18 12:09 | P.PN ---
Subjective Date of Service: 06/18/23 Chief Complaint: ARDS Patient is doing better complaining of cough still has desaturation on minimal exertion Review of Systems General: Weakness Respiratory: Cough, Shortness of Breath Physical Examination - Vital Signs Temperature: 97.1 F Blood Pressure: 100/65 Pulse: 86 Respirations: 23 Pulse Ox (%): 95 - Physical Exam General: Alert, Oriented x3 Respiratory: Crackles/rales Cardiovascular: Regular rate/rhythm, Normal S1 S2 - Studies Microbiology Data (last 24 hrs): 06/12/23 09:25 Blood - Blood Aerobic Blood Culture - Final No growth in 5 days. 06/12/23 09:25 Blood - Blood Anaerobic Blood Culture - Final No growth in 5 days. 06/12/23 08:55 Blood - Blood Aerobic Blood Culture - Final No growth in 5 days. 06/12/23 08:55 Blood - Blood Anaerobic Blood Culture - Final No growth in 5 days. Assessment And Plan - Current Problems (Diagnosis) (1) Respiratory failure Current Visit: Yes Status: Acute Plan: Respiratory failure condition stable still has dyspnea on minimal exertion chest x-ray no progression still has some minimal changes will DC Lasix BUN is mildly elevated stable to be transferred to the floor DC antibiotic Qualifiers: Chronicity: acute
[2023-06-19] MEDS ORDERED: PROMETHAZINE-DM 5 ML OSYR ONE ×2 (00:23→08:59)
[2023-06-19 04:55] VITALS: BMI 31.4
[2023-06-19 04:57] LABS: Absolute Eosinophils 0.1 K/uL (0-0.5); Absolute Lymphocytes (CBC) 1.1 K/uL (0.7-4.9); Absolute Monocytes 1.4 K/uL (0.1-1.3); Absolute Neutrophil 12.7 K/uL (1.8-8.0); Basophils % 0.2 % (0-1.3); Eosinophils % 0.5 % (0-4.4); Hematocrit 43.6 % (36.0-45.0); Hemoglobin 14.3 g/dL (12.0-15.0); Lymphocytes % 7.2 % (15.3-44.8); MCH 35.2 pg (27.0-35.0); MCHC 32.9 g/dL (32.0-36.0); MPV 7.6 fL (7.6-11.3); Neutrophils % 83.1 % (41.7-73.7); Platelets 351 thou/uL (152-406); RBC Red Blood Cell Count 4.07 M/uL (3.86-4.86); Red Cell Distribution Width 20.2 % (12.1-15.2)
[2023-06-19 05:13] LABS: Anion Gap 9.6 mEq/L (5.0-15.0); Magnesium 2.1 mg/dL (1.6-2.4); Phosphorus 3.9 mg/dL (2.5-4.9); Potassium 4.6 mEq/L (3.5-5.1)
[2023-06-19 05:19] LABS: Anisocytosis 2+; Band Neutrophils 2 % (0-1); Blood Morphology Comment NOTED (NOT SEEN); Differential Total Cells Count 100; Lymphocytes 7 % (15-42); Macrocytosis 1+; Monocytes 8 % (0-10); Platelet Estimate ADEQ; Reactive Lymphocytes 1 %; Segmented Neutrophils 82 % (40-80)
[2023-06-19] MEDS ORDERED: GABAPENTIN 300 MG CAP ONE (07:47)
--- NOTE | 2023-06-19 12:12 | P.PN ---
Subjective Date of Service: 06/19/23 Chief Complaint: ARDS Patient is doing better oxygen requirements are declining still has some dyspnea on mild exertion and to ambulate Review of Systems General: Weakness Respiratory: Shortness of Breath Physical Examination - Vital Signs Temperature: 97.1 F Blood Pressure: 118/84 Pulse: 70 Respirations: 18 Pulse Ox (%): 96 - Physical Exam General: Alert, Mild distress Neck: Supple Respiratory: Clear to auscultation bilaterally Assessment And Plan - Current Problems (Diagnosis) (1) Respiratory failure Current Visit: Yes Status: Acute Plan: Patient has respiratory failure from ARDS presumed viral labs chemistries reviewed vital signs stable patient is down to 4 L nasal cannula oxygen Qualifiers: Chronicity: acute
[2023-06-19] MEDS: ESZOPICLONE 1 MG TAB PO PRN (20:20)
--- NOTE | 2023-06-20 12:50 | P.PN ---
Subjective Date of Service: 06/20/23 Chief Complaint: ARDS And is doing much better is now on 4 L of nasal cannula oxygen still complaining of cough and some dyspnea on exertion Review of Systems General: Weakness Respiratory: Cough, Shortness of Breath Physical Examination - Vital Signs Temperature: 97 F Blood Pressure: 127/70 Pulse: 78 Respirations: 20 Pulse Ox (%): 90 - Physical Exam General: Alert, In no apparent distress, Oriented x3, Mild distress Respiratory: Clear to auscultation bilaterally, Diminished Cardiovascular: No edema, Regular rate/rhythm, Normal S1 S2 Assessment And Plan - Current Problems (Diagnosis) (1) Respiratory failure Current Visit: Yes Status: Acute Plan: Admitted with respiratory failure secondary to ARDS presumed viral infection is improving now on 4 L of nasal cannula oxygen plan for discharge on oxygen continue with low-dose Decadron follow-up with me in 2 weeks Qualifiers: Chronicity: acute
[2023-06-20] MEDS: BENZONATATE 100 MG CAP PO SCH (13:44)
--- NOTE | 2023-06-20 14:21 | RAD REPORT ---
EXAM DESCRIPTION: RAD - Chest Single View - 06/20/2023 2:16 pm CLINICAL HISTORY: Pneumonia Chest pain. COMPARISON: <Comparisons> FINDINGS: Portable technique limits examination quality. Since 06/18/2023 study, there has been mild improvement bilateral pulmonary opacities. The heart is n ormal in size. No displaced fractures.Right PICC line has tip in the SVC. IMPRESSION: Mild improvement lung aeration since study
[2023-06-20] MEDS: ACETAMINOPHEN 500 MG TAB PO PRN (15:38)
--- NOTE | 2023-06-21 03:24 | P.PN ---
Date of Service: 06/17/23 Subjective Patient is feeling a little bit better. We are working on getting her off of high-flow. Spoke to the nursing staff and told them to get patient on wall oxygen at this point. Patient is down to 50% oxygen and will go ahead and try to get patient on wall oxygen. Patient is feeling much better and we can wean her down fairly quickly if she keeps improving. Physical Examination - Vital Signs reviewed - Physical Exam General: Alert, oriented x 3 Respiratory: Diminished Cardiovascular: Normal pulses, Normal S1 S2 Gastrointestinal: Normal bowel sounds, Soft and benign Musculoskeletal: No clubbing, No swelling Integumentary: No breakdown, No significant lesion Neurological: no focal deficits (Generalized weakness) Assessment And Plan - Assessment/Plan Assessment/Plan Admit to ICU for septic shock secondary to pneumonia Acute hypoxic respiratory failure secondary to pneumonia Failed outpatient treatment with p.o. antibiotics for pneumonia improved At this time patient has improved significantly. Patient respiratory status is much better. Patient will continue on wall oxygen and we should be able to get her on high-flow. Pulmonary has been following the patient; the patient remains on high-flow at this time. Will go ahead and wean patient down much more aggressively. Acute on chronic kidney injury unknown baseline Patient renal function has improved significantly. Patient is doing much better. Continue with diet as tolerated. Essential hypertension Resume home antihypertensive Type II diabetes Sliding scale insulin, Accu-Chek; Continue with oral hypoglycemics Rhematoid arthritis Holding immunosuppressants at this time. Full code DVT heparin Diet diabetic Disposition Home with independent prior to admission Discharge Plan: Home - Code Status/Comfort Care Code Status: Full Code Critical Care: No Time Spent Managing PTS Care (In Minutes): 35
--- NOTE | 2023-06-21 03:26 | P.PN ---
Date of Service: 06/18/23 Subjective Patient continues to improve with no new complaints. Patient's clinicals symptoms are much better and patient is on wall oxygen. Patient is feeling better and will going to get physical therapy to work with patient at this time. Physical Examination - Vital Signs reviewed - Physical Exam General: Alert, oriented x 3 Respiratory: Clear with end-expiratory wheezing Cardiovascular: regular rate rhythm with no murmurs Gastrointestinal: Normal bowel sounds, Soft and benign Musculoskeletal: No clubbing, No swelling Integumentary: No breakdown, No significant lesion Neurological: no focal deficits (Generalized weakness) Assessment And Plan - Assessment/Plan Assessment/Plan Admit to ICU for septic shock secondary to pneumonia Acute hypoxic respiratory failure secondary to pneumonia Failed outpatient treatment with p.o. antibiotics for pneumonia improved Patient's respiratory status has improved. Will continue with antibiotics. Will continue with physical therapy evaluation. Arranging for outpatient follow-up and home oxygen at this time. Acute on chronic kidney injury unknown baseline Patient's renal function is stable. Continue with monitoring volume status. Essential hypertension Resume home antihypertensive Type II diabetes Sliding scale insulin, Accu-Chek; Continue with oral hypoglycemics Rhematoid arthritis Holding immunosuppressants at this time. Full code DVT heparin Diet diabetic Disposition Home with independent prior to admission Discharge Plan: Home - Code Status/Comfort Care Code Status: Full Code Critical Care: No Time Spent Managing PTS Care (In Minutes): 35
--- NOTE | 2023-06-21 03:31 | P.PN ---
Date of Service: 06/19/23 Subjective Patient is doing well no new complaints. Patient continues to improve. Patient denies any complaints. Patient states her respiratory status is better but she still coughing quite a bit. We are arranging for home oxygen at this time and we are continuing with physical therapy. Physical Examination - Vital Signs reviewed - Physical Exam General: Alert, oriented x 3; Patient morbidly obese Respiratory: Clear with end-expiratory wheezing Cardiovascular: regular rate rhythm with no murmurs Gastrointestinal: Normal bowel sounds, Soft and benign Musculoskeletal: No clubbing, No swelling Integumentary: No breakdown, No significant lesion Neurological: no focal deficits (Generalized weakness) Assessment And Plan - Assessment/Plan Assessment/Plan Admit to ICU for septic shock secondary to pneumonia Acute hypoxic respiratory failure secondary to pneumonia Failed outpatient treatment with p.o. antibiotics for pneumonia improved Patient's respiratory status has improved. Arranged for home oxygen and continue with physical therapy. Anticipate discharge over the next 24-48 hours. Acute on chronic kidney injury unknown baseline Patient's renal function is stable. Continue with monitoring volume status. Essential hypertension Resume home antihypertensive Type II diabetes Sliding scale insulin, Accu-Chek; Continue with oral hypoglycemics Rhematoid arthritis Holding immunosuppressants at this time. Patient will need to follow-up with Rheumatology for further treatment options going forward. Full code DVT heparin Diet diabetic Disposition Home with independent prior to admission Discharge Plan: Home - Code Status/Comfort Care Code Status: Full Code Critical Care: No Time Spent Managing PTS Care (In Minutes): 35
--- NOTE | 2023-06-21 03:32 | P.PN ---
Date of Service: 06/20/23 Subjective Patient doing well with no new complaints. Patient denies any complaints. Patient feeling much better. Patient walked 200 ft with physical therapy. Patient's going to get set up with home oxygen morning. Physical Examination - Vital Signs reviewed - Physical Exam General: Alert, oriented x 3; Patient morbidly obese Respiratory: Clear with end-expiratory wheezing Cardiovascular: regular rate rhythm with no murmurs Gastrointestinal: Normal bowel sounds, Soft and benign Musculoskeletal: No clubbing, No swelling Integumentary: No breakdown, No significant lesion Neurological: no focal deficits (Generalized weakness) Assessment And Plan - Assessment/Plan Assessment/Plan Admit to ICU for septic shock secondary to pneumonia Acute hypoxic respiratory failure secondary to pneumonia Failed outpatient treatment with p.o. antibiotics for pneumonia improved Patient is doing much better. Continue with antibiotics. Arranging for discharge planning. Patient's respiratory status has improved. Arranged for home oxygen and continue with physical therapy. Acute on chronic kidney injury unknown baseline Patient's renal function is stable. Continue with monitoring volume status. Essential hypertension Resume home antihypertensive Type II diabetes Sliding scale insulin, Accu-Chek; Continue with oral hypoglycemics Rhematoid arthritis Holding immunosuppressants at this time. Patient will need to follow-up with Rheumatology for further treatment options going forward. Full code DVT heparin Diet diabetic Disposition Home with independent prior to admission Discharge Plan: Home - Code Status/Comfort Care Code Status: Full Code Critical Care: No Time Spent Managing PTS Care (In Minutes): 35
[2023-06-21 05:13] LABS: Albumin 2.7 g/dL (3.4-5.0); Albumin/Globulin Ratio 0.8 (1.1-1.8); Anion Gap 7.2 mEq/L (5.0-15.0); Bilirubin Total 0.5 mg/dL (0.2-1.0); Globulin 3.2 g/dL (2.3-3.5); Potassium 4.2 mEq/L (3.5-5.1); Protein, Total 5.9 g/dL (6.4-8.2)
--- NOTE | 2023-06-21 07:34 | RAD REPORT ---
EXAM DESCRIPTION: [facility] Single View06/21/2023 4:56 am CLINICAL HISTORY: Shortness of breath COMPARISON: June 20, 2023 FINDINGS: No significant change in the bilateral pulmonary opacities The heart is mildly enlarged. PICC line place IMPRESSION: No significant change the bilateral pulmonary opacities
[2023-06-21] MEDS: dexAMETHasone 4 MG TAB PO SCH (08:20)
[2023-06-21 08:32] VITALS: BP 116/68; TEMP 96.9
[2023-06-21 11:02] VITALS: O2SAT 90
== END 2023-06-21 11:49 | disposition home or self-care (01) | DRG 871 ==
LOC: ER 08:39 → ERHOLD 10:00 → 3RD-ICU 14:55 → 2ND 06-19 13:37
PROVIDERS: ADMIT Hospitalist; ATTEND Hospitalist
PROC: 5A09557 Assistance with Respiratory Ventilation, Greater than 96 Consecutive Hours, Continuous Positive Airway Pressure (ICD-10-PCS; principal; 2023-06-12)
PROC: 0T9B70Z Drainage of Bladder with Drainage Device, Via Natural or Artificial Opening (ICD-10-PCS; 2023-06-12)
PROC: 02HV33Z Insertion of Infusion Device into Superior Vena Cava, Percutaneous Approach (ICD-10-PCS; 2023-06-12)
PROC: 5A0945A Assistance with Respiratory Ventilation, 24-96 Consecutive Hours, High Flow/Velocity Cannula (ICD-10-PCS; 2023-06-17)
DX: A41.9 Sepsis, unspecified organism (principal); J18.9 Pneumonia, unspecified organism; R65.21 Severe sepsis with septic shock; J80 Acute respiratory distress syndrome; N17.9 Acute kidney failure, unspecified; E87.1 Hypo-osmolality and hyponatremia; I10 Essential (primary) hypertension; M06.9 Rheumatoid arthritis, unspecified; E11.9 Type 2 diabetes mellitus without complications; D53.9 Nutritional anemia, unspecified; K21.9 Gastro-esophageal reflux disease without esophagitis; M19.90 Unspecified osteoarthritis, unspecified site; Z88.0 Allergy status to penicillin; Z79.52 Long term (current) use of systemic steroids; Z90.49 Acquired absence of other specified parts of digestive tract; Z79.899 Other long term (current) drug therapy; Z96.653 Presence of artificial knee joint, bilateral
CPT/HCPCS: 0241U; 36415; 36569; 36600; 71045; 71275; 80048; 80053; 81001; 82607; 82805; 82947; 83605; 83735; 83880; 84100; 84132; 85025; 85610; 85730; 87040; 87086; 87088; 93005; 93306; 94010; 94660; 96365; 96367; 97116; 97163; 97530; 99285; J0692; J0696; J1644; J1650; J1815; J1940; J2920; J3480; J7030; J7040; J7060; J8540; Q9967

== ENCOUNTER 2024-01-29 18:07 | Emergency (ER) | payer OTHER ==
--- OUTSIDE RECORDS SUMMARY | 2024-01-29 18:10 | XMS REPORT | Continuity of Care Document ---
Author Name Unknown Address [address] [facility]. [address] [id number] [facility] Address [address] [facility] [address] [place] [address] Care Team Providers Care Press Technician Name Role Phone MAURA WARREN Attending Clinician Unavailable CARMINE DOMINGUEZ Attending Clinician Unavailable Carmine Dominguez MD Attending Clinician Pob, Adc Lab Main Attending Clinician UnavailYuan Alanis MD Attending Clinician [phone] YUAN CREWS Attending Clinician Unavail able YUAN CREWS Attending Clinician Unavail able Doctor Unassigned, Tarkio Attending Clinician U DR BELKYS Smith Attending Clinician Unavailable DR BELKYS HERNANDEZ Admitting Clinician Unavailable Payers Payer Name Policy Type Policy Number Effective Date Expirati on Date Source [employer] MEDICARE ADV [id number] 1 00:00:00 Problems Condition Name Condition Details Condition Category Status Onset Date Resolution Date Last Treatment Date Treating Clinician Comments Source Overactive bladder Overactive bladder Disease Active - 00:00: 00 [facility] Morbid obesity with body mass index of 40.0-49.9 Morbid obesity with body mass index of 40.0-49.9 Disease Active 01-02 00:00: 00 [facility] Post-op pain Post-op pain Disease Active 01-02 00:00: 00 [facility] Allergies, Adverse Reactions, Alerts Allergy Name Allergy Type Status Severity Reaction(s) Onset Date Inactive Date Treating Clinician Comments Source Penicill ins Propensi ty to adverse reaction s Active Hives 12-31 00:00: 00 [facility] PENICILL INS Drug Class Active Hives 12-31 00:00: 00 [facility] Social History Social Habit Start Date Stop Date Quantity Comments Source History SDOH Alcohol Std Drinks [facility] History SDOH Alcohol Binge [facility] Sex Assigned At [facility] Exposure to SARS-CoV-2 (event) Not sure [facility] Tobacco use and exposure 2019-10-16 00:00:00 2019-10-16 00:00:00 Never used [facility] Alcohol intake 2019-10-16 00:00:00 2019-10-16 00:00:00 Lifetime non-drinker (finding) [facility] History SDOH Alcohol Frequency 2019-01-08 00:00:00 2019-01-08 00:00:00 1 [facility] Alcohol Comment 2016-12-31 00:00:00 2016-12-31 00:00:00 Social Drinker [facility] Smoking Status Start Date Stop Date Source Never smoker [facility] Medications Ordered Medication Name Filled Medication Name Start Date Stop Date Current Medication? Ordering Clinician Indication Dosage Frequency Signature (SIG) Comments Components Source oxybutynin 10 mg 24 hr tablet 11-11 00:00: 00 Yes [id number] 10mg Take 1 tablet by mouth daily. [facility] oxybutynin 10 mg 24 hr tablet 10-15 00:00: 00 11-11 00:00 :00 No [id number] 10mg Take 1 tablet by mouth daily. [facility] sulfamethox azole-trime thoprim (BACTRIM DS) 800-160 mg per tablet 09-14 00:00: 00 10-15 00:00 :00 No [id number] 1{tbl} Take 1 tablet by mouth 2 (two) times daily. [facility] Naproxen-Es omeprazole Mag (VIMOVO) 500-20 mg per tablet 09-10 14:57: 03 Yes Take by mouth 2 (two) times daily. [facility] venlafaxine XR 150 mg 24 hr capsule 09-10 14:26: 28 Yes 150mg Take 150 mg by mouth daily with breakfast. [facility] GABAPENTIN ORAL 09-10 14:26: 05 Yes Take by mouth. Indication s: every 6 hours [facility] tramadol HCl (TRAMADOL ORAL) 09-10 14:26: 05 Yes Take by mouth. Indication s: every 6 hours [facility] lisinopril 10 mg tablet 09-10 14:25: 24 Yes 10mg Take 10 mg by mouth daily. [facility] esomeprazol e (NEXIUM) 20 mg capsule 09-10 14:25: 24 Yes 20mg Take 20 mg by mouth daily before a meal. Indication s: otc nexium [facility] oxybutynin 10 mg 24 hr tablet 09-10 00:00: 00 10-15 00:00 :00 No [id number] 10mg Take 1 tablet by mouth daily. [facility] leflunomide 20 mg tablet 08-10 00:00: 00 Yes 20mg Take 20 mg by mouth daily. [facility] esomeprazol e 40 mg capsule 2018-04 15:43: 30 Yes 40mg Take 40 mg by mouth daily with breakfast. [facility] Naproxen-Es omeprazole Mag (VIMOVO) 500-20 mg per tablet 2018-04 15:43: 30 Yes Take by mouth 2 (two) times daily. [facility] lisinopril 10 mg tablet 2018-04 15:43: 30 Yes 10mg Take 10 mg by mouth daily. [facility] venlafaxine XR 150 mg 24 hr capsule 2018-04 15:43: 30 Yes 150mg Take 150 mg by mouth daily with breakfast. [facility] GABAPENTIN ORAL 2018-04 15:43: 30 Yes Take by mouth. Indication s: every 6 hours [facility] tramadol HCl (TRAMADOL ORAL) 2018-04 15:43: 30 Yes Take by mouth. Indication s: every 6 hours [facility] esomeprazol e (NEXIUM) 20 mg capsule 2018-04 15:43: 30 Yes 20mg Take 20 mg by mouth daily before a meal. Indication s: otc nexium [facility] HYDROcodone -acetaminop hen 5-325 mg tablet 2018-04 0-11 00:00: 00 Yes [id number] 1{tbl} Take 1-2 tablets by mouth every 6 (six) hours as needed for Pain (scale 7-10). [facility] Vital Signs Vital Name Observation Time Observation Value Comments S ource Systolic blood pressure 2020-01-12 13:18:00 91 mm[Hg] [facility] Diastolic blood pressure 2020-01-12 13:18:00 57 mm[Hg] [facility] Heart rate 2020-01-12 13:18:00 91 /min [facility] Body height 2020-01-12 13:18:00 154.9 cm [facility] Body weight 2020-01-12 13:18:00 115.849 kg [facility] BMI 2020-01-12 13:18:00 48.26 kg/m2 [facility] Oxygen saturation in Arterial blood by Pulse oximetry 2020-01-12 13:18:00 95 /min [facility] Systolic blood pressure 2019-10-16 15:11:00 109 mm[Hg] [facility] Diastolic blood pressure 2019-10-16 15:11:00 69 mm[Hg] [facility] Heart rate 2019-10-16 15:11:00 82 /min [facility] Body temperature 2019-10-16 15:11:00 36.72 Kerry [facility] Respiratory rate 2019-10-16 15:11:00 18 /min [facility] Body height 2019-10-16 15:11:00 154.9 cm [facility] Body weight 2019-10-16 15:11:00 112.946 kg [facility] BMI 2019-10-16 15:11:00 47.05 kg/m2 [facility] Systolic blood pressure 2019-09-11 14:24:00 117 mm[Hg] [facility] Diastolic blood pressure 2019-09-11 14:24:00 71 mm[Hg] [facility] Heart rate 2019-09-11 14:24:00 110 /min [facility] Body temperature 2019-09-11 14:24:00 36.89 Kerry [facility] Respiratory rate 2019-09-11 14:24:00 18 /min [facility] Body height 2019-09-11 14:24:00 154.9 cm [facility] Body weight 2019-09-11 14:24:00 112.492 kg [facility] BMI 2019-09-11 14:24:00 46.86 kg/m2 [facility] Procedures Procedure Date / Time Performed Performing Clinicia n Source ASSIGNMENT OF BENEFITS 2020-01-12 13:06:26 Docto r Unassigned, Tarkio [facility] REFERRAL- REQUEST/RESPONSE 2019-12-22 05:01:00 Doctor Unassigned, Tarkio [facility] NOTICE OF BILLING PRACTICES FOR MEDICARE PATIENTS 2019-09-11 14:06:10 Doctor Unassigned, Tarkio [facility] POCT URINALYSIS W/O SPECIFIC GRAVITY 2019-09-11 00:00:00 Carmine Dominguez [facility] REFERRAL- REQUEST/RESPONSE 2019-08-12 05:01:00 Doctor Unassigned, Tarkio [facility] Encounters Start Date/Time End Date/Time Encounter Type Admission Type Attending [facility] Care Facility Care Department Encounter ID Source 2020-12-06 15:00:00 2020-12-06 15:00:00 Outpatient MAURA ANGELES [facility] [id number] [facility] 2020-10-21 09:00:00 2020-10-21 09:00:00 Outpatient CARMINE BURROUGHS [facility] [id number] [facility] 2020-06-10 08:15:50 2020-06-10 23:59:00 Hospital Encounter Carmine Dominguez WAY[facility] [id number] [id number] [facility] 2020-06-10 00:00:00 2020-06-10 00:00:00 Outpatient CARMINE BURROUGHS [facility] [id number] [facility] 2020-06-07 00:00:00 2020-06-07 00:00:00 Outpatient CARMINE BURROUGHS [facility] [id number] [facility] 2020-01-12 10:24:56 2020-01-12 10:39:56 Security [employer] Officer Visit Pob, Adc Lab Main Yuan Crews [facility] Building 1..114 350.1.13.10 [id number] [id number] [facility] 2020-01-12 08:07:20 2020-01-12 09:27:01 Office Visit Yuan Crews [facility] Building 1.114 [id number] [id number] [id number] [facility] 2020-01-12 08:00:00 2020-01-12 08:00:00 Outpatient YUAN SALGUERO HOWARD [facility] [id number] [facility] 2020-01-12 00:00:00 2020-01-12 00:00:00 Orders Only Doctor Unassigned, Tarkio [facility] 1..114 350.1.13.10 4.2.7.2.686 [id number] [facility] 2019-12-22 00:00:00 2019-12-22 00:00:00 Orders Only Doctor Unassigned, Tarkio [facility] [id number] 350.1.13.10 4.2.7.2.686 [id number] [facility] 2019-11-10 00:00:00 2019-11-10 00:00:00 Refill Carmine Dominguez [facility] 1..114 350.1.13.10 4.2.7.2.686 [id number] [facility] 2019-10-16 10:02:18 2019-10-16 11:04:08 Office Visit AdumCarmine [facility] [id number] [id number] 4.2.7.2.686 [id number] [facility] 2019-10-16 10:00:00 2019-10-16 10:00:00 Outpatient R ADUMCARMINE [facility] [id number] [facility] 2019-10-03 00:00:00 2019-10-03 00:00:00 Refill AdCarmine matthew [facility] [id number] 350.1.13.10 4.2.7.2.686 [id number] [facility] 2019-09-15 00:00:00 2019-09-15 00:00:00 Case Management AdCarmine matthew [facility] [id number] 350.1.13.10 4.2.7.2.686 [id number] [facility] 2019-09-11 09:06:08 2019-09-11 10:34:47 Office Visit AdumCarmine [facility] [id number] 350.1.13.10 4.2.7.2.686 [id number] [facility] 2019-09-11 09:00:00 2019-09-11 09:00:00 Outpatient R ADUM, CARMINE [facility] [id number] [facility] 2019-09-11 00:00:00 2019-09-11 00:00:00 Orders Only Doctor Unassigned, Tarkio [facility] [id number] 350.1.13.10 4.2.7.2.686 [id number] [facility] 2019-08-12 00:00:00 2019-08-12 00:00:00 Orders Only Doctor Unassigned, Tarkio [facility] [id number] 350.1.13.10 4.2.7.2.686 [id number] [facility] 2017-07-10 06:02:00 2017-07-10 09:14:00 Outpatient BELKYS SUN OM BENEDICT Zhu [id number] [facility] 2017-06-26 05:48:00 2017-06-26 08:00:00 Outpatient BELKYS SUN OM BENEDICT Zhu [id number] [facility] Results Test Description Test Time Test Comments Results Result Co mments Source [facility] W/O SPECIFIC [id number] 15:33:00* Test Item Value Reference Range Interpretation [...] = [id number]) 5+ Negative - Negati ve [facility]
--- NOTE | 2024-01-29 19:29 | RAD REPORT ---
EXAM: CT brain without contrast HISTORY: Numbness COMPARISON: January 13, 2024 TECHNIQUE: Multiple contiguous axial images were obtained and a CT of the brain without contrast.. Sagittal and coronal reconstruction performed. Automated exposure control, adjustment of the mA and/or kV according to patient size, and/or iterative reconstruction. Unless otherwise specified, incidental f indings do not require dedicated imaging follow-u FINDINGS: An intracranial bleed is not seen Ventricles are normal caliber No extra-axial fluid collection noted No significant hypodensity within the brain No fluid within the visualized sinuses or mastoids noted. IMPRESSION: No acute intracranial abnormality noted. If the patient's symptoms persist MRI of the brain would be recommended.
[2024-01-29 19:47] LABS: Absolute Basophils 0.1 K/uL (0-0.5); Absolute Eosinophils 0.3 K/uL (0-0.5); Absolute Lymphocytes (CBC) 2.5 K/uL (0.7-4.9); Absolute Neutrophil 5.5 K/uL (1.8-8.0); Eosinophils % 3.6 % (0-4.4); Hematocrit 45.5 % (36.0-45.0); Hemoglobin 15.1 g/dL (12.0-15.0); Lymphocytes % 26.4 % (15.3-44.8); MCH 32.1 pg (27.0-35.0); MCHC 33.2 g/dL (32.0-36.0); MCV 96.8 fL (80-100); MPV 8.2 fL (7.6-11.3); Monocytes % 10.7 % (3.3-12.3); Neutrophils % 58.3 % (41.7-73.7); Nucleated Red Blood Cells % 0.2 % (0-0); Platelets 189 thou/uL (152-406); Red Cell Distribution Width 14.7 % (12.1-15.2)
--- NOTE | 2024-01-29 19:47 | RAD REPORT ---
Procedure: Chest Single View HISTORY: Chest pain COMPARISON: July 2023 FINDINGS: The lungs appear clear of acute infiltrate. No significant pleural effusion noted. The heart is normal size. IMPRESSION: No acute abnormality is displayed.
[2024-01-29 19:56] LABS: PT Prothrombin Time 11.1 SECONDS (9.4-12.5); PTT, Activated Partial Thromb 28.5 SECONDS (24.3-36.9); Protime INR 0.99
[2024-01-29 20:07] LABS: Albumin 3.4 g/dL (3.4-5.0); Anion Gap 9.7 mEq/L (5.0-15.0); Bilirubin Direct 0.2 mg/dL (0-0.2); Bilirubin Indirect, Calculated 0.6 mg/dL (0.2-0.8); Bilirubin Total 0.8 mg/dL (0.2-1.0); Globulin 3.3 g/dL (2.3-3.5); Potassium 3.7 mEq/L (3.5-5.1); Protein, Total 6.7 g/dL (6.4-8.2); Troponin High Sensitivity 5.7 pg/mL (<58.9)
--- NOTE | 2024-01-29 20:59 | RAD REPORT ---
EXAMINATION: Neck Angio CLINICAL INDICATION: Right arm numbness TECHNIQUE: Axial CT images were obtained from the aortic arch to the skull base after intravenous adm inistration of 100 cc Isovue-370 utilizing angiographic protocol. Multiplanar reformats, as well as 3D post-processing (maximum intensity projection images, volume rendered images and/or shaded surface rendered images) were generated and reviewed. One or more of the following dose reduction techniques were used: Automated exposure control, adjustment of the mA and/or kV according to patient size, and/or iterative reconstruction. Unless otherwise specified, incidental findings do not require dedicated imaging follow-up. COMPARISON: No prior exam. FINDINGS: The visualized aortic arch and great vessels do not demonstrate a significant abnormality Mild plaque within the common carotid, internal carotid and external carotid arteries. Left vertebral artery is more dominant than the right. No significant stenosis noted. A dissection is not seen. Methods for NASCET criteria: Mild stenosis, 0% to 49%; Moderate stenosis 50% to 69%; Severe stenosis, 70% to 99% IMPRESSION: No acute vascular abnormality displayed
--- NOTE | 2024-01-29 20:59 | RAD REPORT ---
EXAMINATION: CTA HEAD CLINICAL INDICATION: Right arm numbness TECHNIQUE: Axial CT images were obtained through the head after 100 cc Isovue-370 intravenous contras t utilizing angiographic protocol with 3D post-processing (maximum intensity projection images, volume rendered images and/or shaded surface rendered images). One or more of the following dose red uction techniques were used: Automated exposure control, adjustment of the mA and/or kV according to patient size, and/or iterative reconstruction. Unless otherwise specified, incidental findings do not require dedicated imaging follow-up. COMPARISON: None FINDINGS: Distal internal carotid, basilar, anterior cerebral, middle cerebral and posterior cerebral arteries do not demonstrate a significant stenosis An aneurysm not noted. No large vessel occlusion IMPRESSION: No acute vascular abnormality displayed
[2024-01-29] MEDS ORDERED: ATORVASTATIN 80 MG TAB PO SCH (21:00)
[2024-01-29 21:19] LABS: Specific Gravity 1.018 (1.005-1.030); Sqamous Epithelial <5 /HPF (None Seen); Urine Bacteria None Seen /HPF (<20); Urine Bilirubin NEGATIVE (Negative); Urine Blood Negative (Negative); Urine Clarity Clear (Clear); Urine Color Light-Yellow (Yellow); Urine Crystals Unidentified Few /HPF (None Seen); Urine Culture Reflex Order NOT NEEDED; Urine Glucose NEGATIVE (Negative); Urine Ketones NEGATIVE (Negative); Urine Microscopic Reflex YN ORDER UMIC; Urine Mucus Slight /HPF (None Seen); Urine Nitrite NEGATIVE (Negative); Urine Protein NEGATIVE (Negative); Urine RBC <5 /HPF (None Seen); Urine Urobilinogen Normal (Normal); Urine WBC <5 /HPF (<5); Urine pH 5.5 (5.0-7.0)
--- NOTE | 2024-01-29 21:27 | ER ---
Nurse's Notes [facility] Name: Jesi Valencia Age: 63 yrs Sex: Female : 1960 Arrival Date: 01/29/2024 Time: 18:07 Bed 14 Private MD: Diagnosis: Weakness Presentation: 01/28 18:15 Chief complaint: Patient states: my right arm has been tingling for a couple days , I iw fell weak like I'm going to pass out, I feel nauseated and to day the right side of my face numb. 18:16 Coronavirus screen: At this time, the client does not indicate any symptoms associated iw with coronavirus-19. Ebola Screen: No symptoms or risks identified at this time. Initial Sepsis Screen: Does the patient meet any 2 criteria? No. Patient's initial sepsis screen is negative. Does the patient have a suspected source of infection? No. Patient's initial sepsis screen is negative. Risk Assessment: Do you want to hurt yourself or someone else? Patient reports no desire to harm self or others. Onset of symptoms was January 27, 2024. 18:16 Method Of Arrival: Ambulatory iw 18:16 Acuity: ARDEN 3 iw Historical: - Allergies: 18:17 PENICILLINS; iw - PMHx: 18:17 Arthritis; DM2; Hypertension; iw - Immunization history:: Adult Immunizations up to date. - Infectious Disease History:: Denies. - Social history:: Smoking status: Patient denies any tobacco usage or history of. Screenin:15 [facility] ED Fall Risk Assessment (Adult) History of falling in the last 3 months, rg5 including since admission No falls in past 3 months (0 pts) Confusion or Disorientation No (0 pts) Intoxicated or Sedated No (0 pts) Impaired Gait No (0 pts) Mobility Assist Device Used No (0 pt) Altered Elimination No (0 pt) Score/Fall Risk Level 0 - 2 = Low Risk Oriented to surroundings, Maintained a safe environment, Hourly rounding (assess needs \T\ fall precautionary measures) done. Abuse screen: Denies threats or abuse. Nutritional screening: No deficits noted. Tuberculosis screening: No symptoms or risk factors identified. Assessment: 19:15 General: Appears in no apparent distress. Behavior is calm, cooperative, appropriate rg5 for age. 19:15 Pain: Complains of pain in head Pain currently is 6 out of 10 on a pain scale. Quality rg5 of pain is described as aching, Pain began 2-3 days ago. Is intermittent. Neuro: Level of Consciousness is awake, alert, obeys commands, Oriented to person, place, time, Optometric Technologist are equal bilaterally Moves all extremities. Gait is steady, Speech is normal, Facial symmetry appears normal, Pupils are PERRLA, Tingling in right arm Numbness in face. Cardiovascular: Heart tones S1 S2 Capillary refill < 3 seconds Patient's skin is warm and dry. Rhythm is sinus rhythm. Respiratory: Airway is patent Trachea midline Respiratory effort is even, unlabored, Respiratory pattern is regular, symmetrical. GI: Abdomen is round Bowel sounds present X 4 quads. Abd is soft and non tender. : No signs and/or symptoms were reported regarding the genitourinary system. EENT: No deficits noted. Derm: Skin is intact, Skin is dry, Skin is normal, Skin temperature is warm. Musculoskeletal: Circulation, motion, and sensation intact. Range of motion: intact in all extremities. 20:00 Reassessment: Patient and/or family updated on plan of care and expected duration. Pain rg5 level reassessed. Patient is alert, oriented x 3, equal unlabored respirations, skin warm/dry/pink. 21:13 Reassessment: Patient and/or family updated on plan of care and expected duration. Pain rg5 level reassessed. Patient is alert, oriented x 3, equal unlabored respirations, skin warm/dry/pink. 22:00 Reassessment: Patient and/or family updated on plan of care and expected duration. Pain rg5 level reassessed. Patient is alert, oriented x 3, equal unlabored respirations, skin warm/dry/pink. Patient states symptoms have improved. Vital Signs: 18:16 BP 139 / 108; Pulse 80; Resp 16; Temp 97; Pulse Ox 94% on R/A; Weight 94.35 kg; Height iw 4 ft. 11 in. ; 19:15 BP 116 / 62; Pulse 72; Resp 17; Temp 98(O); Pulse Ox 94% ; Pain 6/10; rg5 20:00 BP 107 / 58; Pulse 72; Resp 17; Pulse Ox 95% on R/A; rg5 21:12 BP 118 / 72; Pulse 69; Resp 18; Pulse Ox 94% on R/A; rg5 22:00 BP 123 / 75; Pulse 70; Resp 16 S; Pulse Ox 99% on R/A; rg5 18:16 Body Mass Index 42.01 (94.35 kg, 149.86 cm) iw 19:15 Pain Scale: Adult rg5 ED Course: 18:11 Patient arrived in ED. mr 18:17 Triage completed. iw 18:17 Arm band placed on. iw 18:22 Manjit Weiss, RN is Primary Nurse. rs5 18:48 Giulia Goldman FNP-C is [facility]. kb 18:48 Jorden Meade MD is Attending Physician. kb 19:15 Patient has correct armband on for positive identification. Bed in low position. Call rg5 light in reach. Side rails up X 1. Door closed. Noise minimized. Warm blanket given. Verbal reassurance given. 19:15 No provider procedures requiring assistance completed. rg5 19:17 EKG done, by ED staff, reviewed by Giulia MURRAY. oe 19:39 Inserted saline lock: 22 gauge in right antecubital area, using aseptic technique. oe Blood collected. Flushed with 10 mL NS. 21:26 Prince Ibrahim MD is Hospitalizing Provider. kb 22:27 IV discontinued, bleeding controlled, No redness/swelling at site. Pressure dressing rg5 applied. 22:28 Provided Education on: post er care. rg5 Administered Medications: No medications were administered Medication: 19:15 VIS not applicable for this client. rg5 Outcome: 21:26 Decision to Hospitalize by Provider. kb 22:07 Discharge ordered by MD. kb 22:27 Discharged to home ambulatory, rg5 22:27 Condition: stable 22:27 Discharge instructions given to patient, Instructed on discharge instructions, follow up and referral plans. Demonstrated understanding of instructions, follow-up care, 22:29 Patient left the ED. rg5 Signatures: Giulia Goldman FNP-C FNP-Tomaszb Deborah Londono, Reg Reg Jamia Williamson, RN RN iw Chapo Scott oe Manjit Weiss, RN RN rs5 Matt Mansfield RN RN rg5 Corrections: (The following items were deleted from the chart) 19:59 19:57 BP 116 / 62; Pulse 72bpm; Resp 17bpm; Pulse Ox 94%; Temp 98F Oral; Pain 6/10, rg5 Adult; rg5
--- NOTE | 2024-01-29 21:27 | EDPHYS ---
Physician Documentation [facility] Name: Jesi Valencia Age: 63 yrs Sex: Female : 1960 Arrival Date: 01/29/2024 Time: 18:07 Bed 14 Private MD: ED Physician Jorden Meade HPI: 01/28 21:28 This 63 yrs old Female presents to ER via Ambulatory with complaints of kb Numbness Of Face, Numbness Of Arm. 21:28 Pt is a 63 year old female who presents for weakness to right upper and lower kb extremities that started 3 days ago and numbness to right side of face that started today. Denies headache, chest pain, shortness of breath. Pt is ambulatory.. Historical: - Allergies: 18:17 PENICILLINS; iw - PMHx: 18:17 Arthritis; DM2; Hypertension; iw - Immunization history:: Adult Immunizations up to date. - Infectious Disease History:: Denies. - Social history:: Smoking status: Patient denies any tobacco usage or history of. ROS: 21:28 Constitutional: As per HPI kb Exam: 21:26 Constitutional: This is a well developed, well nourished patient who is awake, alert, kb and in no acute distress. Head/Face: Normocephalic, atraumatic. ENT: Moist Mucous membranes Cardiovascular: Regular rate Respiratory: Respirations even and unlabored. No increased work of breathing. Talking in full sentences Abdomen/GI: Soft, non-tender. No distention Skin: Warm, dry with normal turgor. Normal color. MS/ Extremity: Pulses equal, no cyanosis. Neurovascular intact. Full, normal range of motion. 21:26 Neuro: Orientation: is normal, to person, place, time \T\ situation. Mentation: is normal, able to follow commands, Memory: is normal, Motor: strength is 5/5 in the left arm and left leg, strength is 4/5 in the right arm and right leg, Sensation: decreased sensation in right upper and lower extremities, 23:07 ECG was reviewed by the Attending Physician. Vital Signs: 18:16 BP 139 / 108; Pulse 80; Resp 16; Temp 97; Pulse Ox 94% on R/A; Weight 94.35 kg; Height iw 4 ft. 11 in. ; 19:15 BP 116 / 62; Pulse 72; Resp 17; Temp 98(O); Pulse Ox 94% ; Pain 6/10; rg5 20:00 BP 107 / 58; Pulse 72; Resp 17; Pulse Ox 95% on R/A; rg5 21:12 BP 118 / 72; Pulse 69; Resp 18; Pulse Ox 94% on R/A; rg5 22:00 BP 123 / 75; Pulse 70; Resp 16 S; Pulse Ox 99% on R/A; rg5 18:16 Body Mass Index 42.01 (94.35 kg, 149.86 cm) iw 19:15 Pain Scale: Adult rg5 MDM: 18:48 Medical Screening Exam initiated kb 21:27 Differential diagnosis: CVA, TIA, weakness. Data reviewed: vital signs, nurses notes. aleks Consideration of Admission/Observation Patient was admitted/placed on observation. Escalation of care including admission/observation considered. Management of patient was discussed with the following: Hospitalist: Dr Ibrahim accepts pt for admission. Counseling: I had a detailed discussion with the patient and/or guardian regarding the historical points, exam findings, and any diagnostic results supporting the discharge/admit diagnosis, lab results, radiology results, the need for further work-up and treatment in the hospital. 22:07 ED course: Pt now refusing admission. States she wants to go home and will see her dr fink tomorrow. Pt educated on risks of possible stroke and recommendation for admission. Pt understands risks and has decision making capabilities. in agreement. 01/28 18:52 Order name: Basic Metabolic Panel kb 01/28 18:52 Order name: CBC with Diff kb 01/28 18:52 Order name: Hepatic Function kb 01/28 18:52 Order name: Magnesium kb 01/28 18:52 Order name: Protime (+inr) kb 01/28 18:52 Order name: Ptt, Activated kb 01/28 18:52 Order name: Troponin High Sensitivity kb 01/28 18:52 Order name: Urinalysis w/ reflexes kb 01/28 19:50 Order name: CBC with Automated Diff; Complete Time: 20:10 EDMS 01/28 19:56 Order name: Protime (+INR); Complete Time: 20:10 EDMS 01/28 19:56 Order name: PTT, Activated Partial Thromb; Complete Time: 20:10 EDMS 01/28 20:08 Order name: Basic Metabolic Panel; Complete Time: 20:10 EDMS 01/28 20:08 Order name: Liver (Hepatic) Function; Complete Time: 20:10 EDMS 01/28 20:08 Order name: Troponin High Sensitivity; Complete Time: 20:10 EDMS 01/28 20:08 Order name: Magnesium; Complete Time: 20:10 EDMS 01/28 21:20 Order name: Urinalysis w/ reflexes; Complete Time: 21:22 EDMS 01/28 18:52 Order name: CT Head Brain wo Cont kb 01/28 18:52 Order name: Chest Single View XRAY kb 01/28 19:29 Order name: CT; Complete Time: 19:29 EDMS 01/28 19:47 Order name: RAD; Complete Time: 19:48 EDMS 01/28 20:59 Order name: CT; Complete Time: 21:07 EDMS 01/28 20:59 Order name: CT; Complete Time: 21:07 EDMS 01/28 18:52 Order name: Cardiac monitoring; Complete Time: 19:56 kb 01/28 18:52 Order name: EKG - Nurse/Tech; Complete Time: 19:56 kb 01/28 18:52 Order name: IV Saline Lock; Complete Time: 19:56 kb 01/28 18:52 Order name: Labs collected and sent; Complete Time: 19:56 kb 01/28 18:52 Order name: NPO; Complete Time: 19:56 kb 01/28 18:52 Order name: O2 Per Protocol; Complete Time: 19:56 kb 01/28 18:52 Order name: O2 Sat Monitoring; Complete Time: 19:56 kb EC:07 Rate is 67 beats/min. Rhythm is regular. QRS [place] is Normal. [place] interval is normal at kb 156 msec. QRS interval is normal at 68 msec. QT interval is normal at 412 msec. Administered Medications: No medications were administered Disposition Summary: 01/29/24 22:07 Discharge Ordered Notes: Location: Home(01/29/24 22:07) kb Condition: Stable(01/29/24 22:07) kb Diagnosis - Weakness(01/29/24 22:07) kb Followup: kb - With: Emergency Department - When: As needed - Reason: Worsening of condition Followup: kb - With: Private Physician - When: 2 - 3 days - Reason: Recheck today's complaints, Continuance of care, Re-evaluation by your physician Discharge Instructions: - Discharge Summary Sheet kb - Weakness, [id number] kb Forms: - Medication Reconciliation Form kb - Antibiotic Education kb - Prescription Opioid Use kb - Patient Portal Instructions kb - Leadership Thank You Letter kb Addendum: 02/01/2024 22:48 Co-signature as Attending Physician, Jorden Meade MD I reviewed the patient's care r n provided by the Advanced Practice Provider and agree with the diagnosis and treatment plan. Signatures: Dispatcher [employer] EDMS Giulia Goldman, SUPPORT TECHNICIAN-C SUPPORT TECHNICIAN-Ckb Jamia Williamson, RN RN iw Jorden Meade MD MD rn Garcia, Cindy, RN RN cg Corrections: (The following items were deleted from the chart) 01/28 19:34 19:34 Neck Angio+CT.RAD.BRZ ordered. [facility] 21:57 21:26 kb cg 22:07 21:26 Observation kb kb 22:07 21:26 HenryPrince janneth kb kb 22:07 21:26 Telemetry/MedSurg (observation) kb kb 22:07 21:26 Stable kb kb 22:07 21:26 new kb kb 22:07 21:26 are unchanged kb kb 22:07 21:26 Standard kb kb 22:07 21:26 Weakness kb kb 22:07 21:57 409 cg kb
[2024-01-29] MEDS ORDERED: ONDANSETRON 4 MG/2 ML VIAL IV PRN (21:42)
[2024-01-29] MEDS ORDERED: NA CHLORIDE 0.9% 1,000 ML IV SCH ×2 (22:00)
[2024-01-30 07:28] VITALS: TEMP 98
[2024-01-30 07:32] VITALS: BP 123/75; O2SAT 99
[2024-01-30] MEDS ORDERED: ENOXAPARIN 40 MG/0.4 ML SQ SCH (09:00)
--- NOTE | 2024-01-30 12:15 | EKG ---
Test Date: 2024-01-29 Test Time: 19:14:48 Agricultural Services Director: ART MEASUREMENT RESULTS: Intervals: Rate: 67 [place]: 156 QRSD: 68 QT: 390 QTc: 412 [place]: P: 60 [place]: 156 QRS: 91 T: 55 INTERPRETIVE STATEMENTS: Normal sinus rhythm Normal ECG Compared to ECG 06/12/2023 09:06:43 Sinus tachycardia no longer present Electronically Signed On 01-30-24 12:12:39 CDT by Rizwan Amador
== END 2024-01-29 22:29 | disposition home or self-care (01) ==
LOC: ER 18:07
DX: R53.1 Weakness (principal); R20.0 Anesthesia of skin; E11.9 Type 2 diabetes mellitus without complications; I10 Essential (primary) hypertension
CPT/HCPCS: 93005; 85025; 81001; 80048; 36415; 83735; 85610; 80076; 85730; 84484; 70450; 70496; 70498; 71045; 99284; Q9967